=== PATIENT | male | born 1950 | race Caucasian/White ===

== ENCOUNTER 2017-04-15 09:05 | Inpatient (IN) | payer OTHER ==
[~2017-04-15] VITALS: Ht 195.6 cm; Wt 114.1 kg
[~2017-04-15 09:05] MED LIST: ASPCH81 PO; LANS15CA6 PO; LISI2.5T5 PO; LPT/40 PO; METO50TA7 PO; MULTTAB58 PO; NTRGSL/4 UT; PRD75 PO; PSYL55.43 PO; TRAM-10 PO
[2017-04-15] MEDS ORDERED: TRAMADOL HCL 50 MG TAB PO PRN (09:45)
--- NOTE | 2017-04-15 10:49 | History and Physical ---
"History & Physical Date of Service Apr 15, 2017. History & Physical 66 yo M that follow with Dr. Quinonez of our practice for PAF. S/P JASMEET guided cardioversion with recurrent episodes of afib. Presents for elective admission for sotalol loading. Currently without complaint. Understands need for admission and continuous cardiac monitoring for addition of antiarrhythmic. Denies cp, sob, palpitations, lightheadedness or dizziness. Compliant with outpatient medications. Has not missed any doses of pradaxa. ROS: Pertinent positives as per HPI, 5 system (cardiovascular, pulmonary, gastroenterologic, neurologic, endocrinologic) systems otherwise negative. Patient Active Problem List Diagnosis Code Cardiac dysrhythmia, unspecified I49.9 Esophageal reflux K21.9 THORACIC DISC DISPLACMNT M51.24 DISC DIS MNL-ESC-ICEA M50.90 Diaphragmatic hernia K44.9 LOC PRIM [id number] M17.10 ADVANCE DIRECTIVE INFORMATION Rotator cuff rupture M75.100 Generalized osteoarthritis of multiple sites M15.9 Impaired fasting glucose R73.01 Coronary atherosclerosis of eagle coronary artery I25.10 Dyslipidemia, goal LDL below 70 E78.5 S/P primary angioplasty with coronary stent Z95.5 Lumbar degenerative disc disease M51.36 Lumbar stenosis with neurogenic claudication M48.06 Facet arthritis of lumbosacral region (HCC) M46.97 Obesity, Class I, BMI 30.0-34.9 (see actual BMI) E66.9 Prediabetes R73.03 PVC (premature ventricular contraction) I49.3 Paroxysmal atrial fibrillation (HCC) I48.0 Social History Substance Use Topics Smoking status: Never Smoker Smokeless tobacco: Never Used Alcohol use No Review of patient's allergies indicates: Allergen Reactions Sulfa Antibiotics not sure if he reacted to this OUTPATIENT MEDICATIONS: metoprolol succinate XL (TOPROL XL) 50 MG TB24 Take 1 Tab by mouth daily. Patient taking differently: Take 75 mg by mouth daily. lisinopril (PRINIVIL) 2.5 MG Tablet Take 1 Tab by mouth daily. Cholecalciferol (VITAMIN D3) 2000 UNITS Capsule Take 1 Cap by mouth daily. atorvaSTATin (LIPITOR) 20 MG Tablet Take 1 Tab by mouth daily. Tadalafil (CIALIS) 10 MG Tablet TAKE DIRECTED NITROGLYCERIN 0.3 MG SL SUBL 1 every 5 min as needed with chest pain up to 3 doses in 15 minutes METAMUCIL CLEAR & NATURAL PO POWD daily as needed PREVACID 15 MG PO CPDR One capsule once a day at bedtime ECOTRIN LOW STRENGTH 81 MG OR TBEC one by mouth daily traMADol (ULTRAM) 50 MG Tablet Take 1 Tab by mouth every 4 hours as needed for Pain. dabigatran (PRADAXA) 150 MG Capsule Take 1 Cap by mouth 2 times a day. Lipid Panel Results: LIPID PANEL Aryan Dt/Tm Resulted Value Status HOURS FASTING (hours) 07/07/14 7:34A 07/07/14 12 Final TRIGLYCERIDES (mg/dL) 07/07/14 7:34A 07/07/14 93 Final CHOLESTEROL (mg/dL) 07/07/14 7:34A 07/07/14 98 Final HDL (mg/dL) 07/07/14 7:34A 07/07/14 36* Final CHOL/HDL RATIO ( ) 07/07/14 7:34A 07/07/14 2.7 Final LDL (CALCULATED) (mg/dL) 07/07/14 7:34A 07/07/14 43 Final TSH(uIU/mL) Aryan Dt/Tm Resulted Value Status 05/23/08 8:27A 05/23/08 1.12 FINAL 12/27/04 8:45A 12/28/04 1.98 FINAL 10/21/99 11:30A 10/21/99 0.74 FINAL CBC Results: CBC Aryan Dt/Tm Resulted Value Status WBC (K/uL) 07/28/12 9:30A 07/28/12 5.96 Final RBC (M/uL) 07/28/12 9:30A 07/28/12 4.74 Final HGB (g/dL) 07/28/12 9:30A 07/28/12 15.0 Final HCT (%) 07/28/12 9:30A 07/28/12 44.8 Final MCV (fL) 07/28/12 9:30A 07/28/12 94.5 Final MCH (pg) 07/28/12 9:30A 07/28/12 31.6 Final MCHC (g/dL) 07/28/12 9:30A 07/28/12 33.5 Final RDW (%) 07/28/12 9:30A 07/28/12 13.5 Final PLATELET COUNT (K/uL) 07/28/12 9:30A 07/28/12 270 Final MPV (fL) 07/28/12 9:30A 07/28/12 9.2 Final OBJECTIVE/PHYSICAL EXAMINATION: BP 108/70 | Pulse 78 | Resp 16 | Wt 250 lbs 12.8 oz (113.762kg) | BMI 29.74 kg/m | BSA 2.49 m General: NAD, AAO x3, well nourished. HEENT: Normocephalic. Atraumatic. Conjunctiva pink, no scleral icterus. No carotid bruits, the carotid upstrokes are brisk. No JVD. No HJR Heart: Regular normal S-1 and S-2 no S-3 or S-4 gallop. No murmurs or rubs appreciated. PMI is not displaced. No RV heave. Lungs : Clear bilateral without rales , rhonchi, or wheeze. Abdomen: Normal bowel sounds. Soft. Nontender. No masses or organomegaly. No abdominal bruits. Extremities: No clubbing, cyanosis, or edema. Pulses: radial=2/4, Dorsalis pedis =2/4, Neuro: No focal deficits. ASSESSMENT: 1. Paroxysmal atrial fibrillation -s/p JASMEET guided DCCV 08/2016. -recurrent episode x2 over the past 30 days. -failed outpatient treatment. -appropriately anticoagulated with Pradaxa 2. Chronic coronary disease status post drug eluting stent implantation to left anterior descending artery 2009. - OBRIEN reported without exertional chest pain 3. Dyslipidemia - controlled; tolerating 40 mg atorvastatin 4. Palpitations secondary to PVC's and PAF 5. Obesity - weight is stable, BMI now < 30 PLAN: Admission for sotalol load. Patient is not a candidate for flecainide due to history of coronary artery disease. Prefer to avoid amiodarone due to potential for long-term side effects. Recommend inpatient hospital admission for sotalol loading. Patient agreeable to admission 04/15/17. Long discussion with the patient and his regarding the natural history and pathophysiology of paroxysmal atrial fibrillation. Continue Pradaxa. Will perform daily EKG's to monitor QT interval. Continuous telemetry monitoring. Will titrate metoprolol down and likely off. Cont all other outpatient medications."
[2017-04-15 10:56] VITALS: BP 113/72; PULSE 60; TEMP 36.6; O2SAT 95; Ht 195.6 cm; Wt 114.1 kg
[2017-04-15] MEDS ORDERED: POLYETHYLENE (MIRALAX) 17 GM PACK PO PRN (11:00)
[2017-04-15] MEDS ORDERED: ALUMINUM/MAGNESIUM/SIMETH (MAALOX MAX) 30 ML UDC PO PRN (11:00)
[2017-04-15] MEDS ORDERED: ACETAMINOPHEN 325 MG TAB PO PRN (11:00)
[2017-04-15] MEDS ORDERED: ONDANSETRON INJ 2 MG/ML 2 ML VIAL IV PRN (11:00)
[2017-04-15] MEDS ORDERED: ZOLPIDEM TARTRATE 5 MG TAB PO PRN ×2 (11:00)
[2017-04-15] MEDS ORDERED: SOTALOL HCL 80 MG TAB PO ONE (11:00)
[2017-04-15] MEDS ORDERED: MAGNESIUM HYDROXIDE SUSP 30 ML UDC PO PRN (11:00)
[2017-04-15 11:20] LABS: MEAN CELL VOLUME 92.3 fL (80-100); MEAN CORPUSCULAR HEMOGLOBIN 29.6 pg (25-34); MEAN PLATELET VOLUME 9.3 fL (7.4-10.4); PLATELET COUNT 283 K/uL (130-400); RED BLOOD COUNT 4.66 M/uL (4.7-6.1); WHITE BLOOD COUNT 6.49 K/uL (4.8-10.8)
[2017-04-15 11:28] LABS: INR 1.1 (0.9-1.1); PROTHROMBIN TIME (PATIENT) 12.2 SECONDS (9.0-12.0)
[2017-04-15 11:42] LABS: CREATININE 0.86 mg/dl (0.60-1.40)
[2017-04-15 14:00] LABS: MEAN CORPUSCULAR HGB CONC 32.1 g/dl (32-36)
[2017-04-15 15:31] VITALS: BP 107/67; PULSE 53; TEMP 36.8; O2SAT 94
[2017-04-15 16:00] VITALS: O2SAT 95
[2017-04-15 20:00] VITALS: O2SAT 96
[2017-04-15 20:01] VITALS: BP 114/69; PULSE 54; TEMP 36.7; O2SAT 96
[2017-04-15] MEDS: DABIGATRAN ELEXILATE 75 MG CAP PO SCH (21:14)
[2017-04-15] MEDS: SOTALOL HCL 80 MG TAB PO SCH (21:15)
[2017-04-15 23:59] VITALS: BP 113/72; PULSE 54; TEMP 36.9; O2SAT 94
[2017-04-16] VITALS (8 sets, daily range): BP systolic 99–122; BP diastolic 58–71; PULSE 50–58; TEMP 36.4–37.1; O2SAT 93–96
[2017-04-16] MEDS: SOTALOL HCL 80 MG TAB PO SCH ×2 (08:10→21:42)
[2017-04-16] MEDS: DABIGATRAN ELEXILATE 75 MG CAP PO SCH ×2 (08:11→21:43)
[2017-04-16] MEDS: LISINOPRIL 2.5 MG TAB PO SCH (08:11)
[2017-04-16] MEDS ORDERED: NURSING VERBAL MED ORDER ONE (08:45)
[2017-04-16] MEDS ORDERED: LANSOPRAZOLE SOLUTAB 15 MG PO SCH ×2 (09:00→21:00)
[2017-04-16] MEDS ORDERED: ASPIRIN 81 MG ECTAB PO SCH ×2 (09:00→21:00)
[2017-04-16] MEDS ORDERED: METOPROLOL SUCC 25MG EXT REL TAB PO SCH (09:00)
[2017-04-16] MEDS ORDERED: ATORVASTATIN 20 MG TAB PO SCH ×2 (09:00→21:00)
--- NOTE | 2017-04-16 11:03 | Cardiology Follow-Up ---
Subjective Subjective Date of Service: Apr 16, 2017. Pt evaluation today including: conversation w/ patient, physical exam, chart review, lab review, review of studies, review of inpatient medication list Additional Details: Pt seen and examined, states that he feels fine, would like to go to the gym to work out. Denies cp, sob, palpitations, lightheadedness or dizziness. Tele reviewed: sinus rhythm without arrhythmia. EKG sinus rhythm with QTc of 433 ms Problem List Medical Problems: (1) Exertional dyspnea Status: Acute (2) New onset atrial fibrillation Status: Acute (3) Weakness Status: Acute Review of Systems Respiratory: No see HPI, No cough, No sputum, No wheezing, No shortness of breath, No dyspnea on exertion, No dyspnea at rest, No hemoptysis, No problem reported Cardiac: No see HPI, No chest pain, No orthopnea, No PND, No edema, No claudication, No palpitations, No problem reported Objective Vital Signs Last Vital Signs Documentation Date Time Temp Pulse Resp B/P (MAP) Pulse Ox O2 Delivery O2 Flow Rate FiO2 04/16/17 08:02 36.6 58 18 99/61 (74) 96 04/16/17 08:00 Room Air Physical Exam: General Appearance: WD/WN, no apparent distress Eyes: bilateral eyes normal inspection, bilateral eyes PERRL, bilateral eyes EOMI ENT: normal ENT inspection, hearing grossly normal, pharynx normal Neck: supple, no adenopathy, thyroid normal, no JVD, no carotid bruits, trachea midline Respiratory/Chest: chest non-tender, lungs clear, normal breath sounds, no respiratory distress, no accessory muscle use Cardiovascular: regular rate, rhythm, no edema, no JVD, no murmur, + gallop/S4 Abdomen: normal bowel sounds, non tender, soft Extremities: normal inspection, no pedal edema, no calf tenderness 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 paroxysmal atrial fibrillation here for sotalol load tolerating well QTc stable 413 to 433 ms, well within normal limits will cont toprol stopped cont pradaxa monitor for 6 doses daily ekg cont to monitor on tele
[2017-04-17] VITALS (7 sets, daily range): BP systolic 101–116; BP diastolic 64–73; PULSE 54–97; TEMP 36.6–37; O2SAT 94–97
[2017-04-17] MEDS: LISINOPRIL 2.5 MG TAB PO SCH (08:20)
[2017-04-17] MEDS: SOTALOL HCL 80 MG TAB PO SCH (08:20)
[2017-04-17] MEDS: DABIGATRAN ELEXILATE 75 MG CAP PO SCH (08:20)
--- NOTE | 2017-04-17 10:19 | Cardiology Follow-Up ---
Subjective Subjective Date of Service: Apr 17, 2017. Pt evaluation today including: conversation w/ patient, physical exam, chart review, lab review, review of studies, review of inpatient medication list Additional Details: Pt seen and examined, states that he feels fine. Denies cp, sob, palpitations, lightheadedness or dizziness. Tele reviewed: sinus rhythm without arrhythmia or significant ectopy. EKG: sinus rhythm QTc 437ms Problem List Medical Problems: (1) Exertional dyspnea Status: Acute (2) New onset atrial fibrillation Status: Acute (3) Weakness Status: Acute Review of Systems Respiratory: No see HPI, No cough, No sputum, No wheezing, No shortness of breath, No dyspnea on exertion, No dyspnea at rest, No hemoptysis, No problem reported Cardiac: No see HPI, No chest pain, No orthopnea, No PND, No edema, No claudication, No palpitations, No problem reported Objective Vital Signs Last Vital Signs Documentation Date Time Temp Pulse Resp B/P (MAP) Pulse Ox O2 Delivery O2 Flow Rate FiO2 04/17/17 08:32 36.8 97 16 101/65 (77) 97 Room Air Physical Exam: General Appearance: WD/WN, no apparent distress Eyes: bilateral eyes normal inspection, bilateral eyes PERRL, bilateral eyes EOMI ENT: normal ENT inspection, hearing grossly normal, pharynx normal Neck: supple, no adenopathy, thyroid normal, no JVD, no carotid bruits, trachea midline Respiratory/Chest: chest non-tender, lungs clear, normal breath sounds, no respiratory distress, no accessory muscle use Cardiovascular: regular rate, rhythm, no edema, no JVD, no murmur, + gallop/S4 Abdomen: normal bowel sounds, non tender, soft Extremities: normal inspection, no pedal edema, no calf tenderness 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 paroxysmal atrial fibrillation here for sotalol load tolerating well QTc stable 413 to 433 to 437 ms, well within normal limits will cont toprol stopped cont pradaxa since QTc has been stable: will give evening dose early, check ekg and likely d/c to home this afternoon script called into [facility] pharmacy as per patient preference
[2017-04-17] MEDS ORDERED: BTP80 PO (10:21)
--- NOTE | 2017-04-17 10:23 | Discharge Instructions ---
Discharge Instructions Date of Service Apr 17, 2017. Admission Reason for Admission: Atrial Fibrillation Discharge Discharge Diagnosis / Problem: Sotalol initiation for paroxysmal atrial fibrillation Discharge Goals Goal(s): Improve disease control Activity Recommendations Activity Limitations: resume your previous activity Lifting Limitations: none Exercise/Sports Limitations: as tolerated May Resume Sexual Activity: when tolerated Shower/Bathe: no limitations Driving or Machine Use: no limitations . Instructions / Follow-Up Instructions / Follow-Up Scheduled to see Dr. Quinonez on 05/18/17. Current Hospital Diet Patient's current hospital diet: AHA Diet (Heart Healthy) Discharge Diet Recommended Diet: AHA Diet (Heart Healthy) Pending Studies Studies pending at discharge: no Medical Emergencies . Who to Call and When: Medical Emergencies: If at any time you feel your situation is an emergency, please call 911 immediately. . Non-Emergent Contact Non-Emergency issues call your: Primary Care Provider . . "Provider Documentation" section prepared by José Miguel Santiago. . VTE Core Measure Inpt VTE Proph given/why not?: Other Anticoagulation
[2017-04-17] MEDS: SOTALOL HCL 80 MG TAB PO ONE ×2 (14:43→15:05)
== END 2017-04-17 16:18 | disposition home or self-care (01) | DRG 310 ==
LOC: C.2T 10:16
PROVIDERS: ADMIT Internal Medicine Cardiovascular Disease; ATTEND Internal Medicine Cardiovascular Disease
DX: I48.0 Paroxysmal atrial fibrillation (principal); I25.10 Atherosclerotic heart disease of native coronary artery without angina pectoris; Z95.5 Presence of coronary angioplasty implant and graft; E78.5 Hyperlipidemia, unspecified; E66.9 Obesity, unspecified; Z68.29 Body mass index [BMI] 29.0-29.9, adult; I49.3 Ventricular premature depolarization; Z79.899 Other long term (current) drug therapy

== ENCOUNTER 2021-02-17 14:05 | Inpatient (IN) ==
--- NOTE | 2021-02-17 14:17 | Emergency Department Note ---
Impression & Plan Back pain, History of fusion of lumbar spine ED Provider Note NAME: OLIVA STARR AGE: 70 SEX: M : 1950 ARRIVES VIA: Ambulance INFORMANT: Patient, ED PROVIDER(S): Lewis Conway MD Chief Complaint: Back pain HPI: Patient does present with concern for midline lower back pain. Patient states that this is been ongoing for several months but believes it is been exacerbated over the last 2 weeks. The patient describes it as sharp with occasional radiation to the right thigh and hip area. Patient states he has been playing golf in the colder weather he thinks also may have exacerbated his symptoms. Patient states that this morning he was unable to get up and walk and thus called the ambulance. The patient did receive fentanyl in route with mild improvement in symptoms. Patient denies any bowel or bladder incontinence or true weakness. The patient denies any numbness or tingling. The patient denies any saddle anesthesia. Patient denies fevers or chills. The patient does have a remote history of a spinal fusion completed in [address] Carrillo. The patient did have an outpatient MRI completed at [facility] on Thursday and also believes that this may have contributed to his discomfort. ROS: See HPI for pertinent positives and negatives. A total of 10 systems were reviewed and otherwise negative. Past medical history: See below Surgical history: See below Social history: See below Physical Exam: GENERAL: Mildly uncomfortable in appearance, wearing glasses and a mask, lying on left side. EYE EXAM: Normal conjunctiva. PERRL, no anisocoria and EOM's grossly intact w/o pain. NECK: Supple, no nuchal rigidity, no adenopathy, non-tender. No signs of meningismus. LUNGS: Clear to auscultation. Normal chest wall mechanics. HEART: NSR, no MRG. ABDOMEN: Abdomen soft, non-tender, normo-active bowel sounds, no masses, no rebound or guarding. BACK: Well-healed midline lower lumbar incisional scar, mild pain in the midline lower lumbar region without overlying skin changes. SKIN: No rashes and no bruising. UPPER EXTREMITIES: Upper extremities are grossly normal. LOWER EXTREMITIES: Grossly normal, no edema. No saddle anesthesia, decreased range of motion secondary to pain. NEURO EXAM: A&O x3, cranial nerves II-XII grossly intact, normal speech, moves all 4 extremities. No saddle anesthesia Differential diagnoses: Musculoskeletal, disc herniation, fracture, metastatic disease, cord compression, discitis, sciatica, cauda equina, infection, aortic disease, renal colic, gastrointestinal, as well as other pathologies. Course: Patient was seen and evaluated the bedside. Full history physical exam was performed. EKG: None Imaging Studies: None Cardiac monitoring: An order was placed for continuous cardiac monitoring. The monitor shows a rate of 78 with sinus rhythm. MDM: Patient was seen due to concern for back pain. Blood work is obtained. I did try and attempt to obtain his outpatient MRI but this was unable to be done given that it was a Thursday. I did Contact the on-call spinal surgeon after the patient did require multiple medications for his back pain. Do not believe the patient requires repeat imaging given that he just had it done within the last 48 hours and has no signs of current cauda equina. After further discussion with the patient the patient's is unable to get up and walk and be comfortable at home and does not believe that his will be able to care for him. Covid swab ordered. I did speak to the on-call hospitalist Dr. Jaime and the patient was admitted to the medicine service. Past Med/Surg History Medical History Atrial fibrillation, currently in sinus rhythm AFIB DX 4-5 YR AGO - HX CARDIOVERSION 2015 CAD (coronary artery disease) Cubital tunnel syndrome on right Diverticulosis GERD (gastroesophageal reflux disease) HX Heart disease History of anesthesia reaction ONLY ONE TIME WITH GENERAL ANESTHESIA HAD TROUBLE CATCHING BREATH - PT NOT SURE WHAT SURGERY THAT WAS WITH Pre-diabetes Right carpal tunnel syndrome Surgical History H/O colonoscopy H/O knee surgery RIGHT History of bilateral knee replacement History of esophagogastroduodenoscopy (EGD) History of laminectomy CERVICAL 1991 - DENIES LIMITED ROM - OCC NECK CRACKS History of lumbar fusion History of percutaneous left heart catheterization (LHC) HX HEART CATH FOR SYMPTOMS & STENT X 1 2009 - [facility] History of repair of left rotator cuff History of repair of right rotator cuff S/P cholecystectomy HX OF Stented coronary artery HX STENT X 1 - 2009 [facility] Family History Other Family history of colon cancer in father Family history of colon cancer in mother Social History Smoking Status: Never smoker Hx Alcohol Use: Yes Alcohol type: beer Hx Substance Use: No Preferred Language: Tajik Communication Ability: Effective Visual Impairment: Limited Hearing Ability: Hard of Hearing 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 HIVES Home Meds Home Medications Medication Instructions Recorded Confirmed acetaminophen 500 mg tablet 1,000 mg PO QID PRN tab 05/31/19 02/17/21 aspirin 81 mg tablet,delayed 81 mg PO DAILY 05/31/19 02/17/21 release dabigatran etexilate 150 mg capsule 150 mg PO BID 05/31/19 02/17/21 nitroglycerin 0.4 mg sublingual 0.4 mg SL Q5M PRN 05/31/19 02/17/21 tablet sotalol 80 mg tablet 80 mg PO BID 05/31/19 02/17/21 cholecalciferol (vitamin D3) 50 mcg PO DAILY 08/08/20 02/17/21 [Vitamin D3] metformin 500 mg PO BID 08/08/20 02/17/21 atorvastatin 40 mg PO QPM 02/17/21 02/17/21 baclofen 10 mg PO BID PRN 02/17/21 02/17/21 cyanocobalamin (vitamin B-12) 1,000 mcg PO Q OTHER DAY 02/17/21 02/17/21 [Vitamin B-12] lansoprazole [Prevacid] 15 mg PO Q OTHER DAY 02/17/21 02/17/21 Previous Rx's Medication Instructions Recorded tramadol 50 - 100 mg PO Q6H PRN #24 tab 08/22/20 Results & Data (ED) Vital Signs Vital Signs - 24 hr 02/17/21 16:09 02/17/21 16:36 02/17/21 17:55 Temperature Temperature Source Pulse Rate [Right Finger] 80 76 Pulse Rhythm Regular Pulse Rhythm [Right Finger] Regular Respiratory Rate 18 18 Respiratory Effort / Characteristics Respiratory Depth Respiratory Pattern Blood Pressure [Left Arm] 123/69 120/60 Blood Pressure [Right Arm] Blood Pressure Mean [Left Arm] 87 80 Blood Pressure Mean [Right Arm] Blood Pressure Position [Left Arm] Blood Pressure Position [Right Arm] Pulse Oximetry 99 99 Oxygen Delivery Method Room Air Room Air 02/17/21 18:38 02/17/21 20:20 02/17/21 22:03 Temperature 36.5 C 36.9 C Temperature Source Oral Oral Pulse Rate [Right Finger] 81 90 77 Pulse Rhythm Pulse Rhythm [Right Finger] Respiratory Rate 14 16 Respiratory Effort / Characteristics Non-Labored Non-Labored Spontaneous Respiratory Depth Normal Normal Respiratory Pattern Regular Regular Blood Pressure [Left Arm] 132/80 123/72 108/66 Blood Pressure [Right Arm] 108/66 Blood Pressure Mean [Left Arm] 97 89 80 Blood Pressure Mean [Right Arm] 80 Blood Pressure Position [Left Arm] Lying Semi-fowlers Lying Blood Pressure Position [Right Arm] Lying Pulse Oximetry 92 90 Oxygen Delivery Method Room Air Room Air Room Air 02/18/21 07:23 Temperature 37.0 C Temperature Source Oral Pulse Rate [Right Finger] 78 Pulse Rhythm Pulse Rhythm [Right Finger] Respiratory Rate 16 Respiratory Effort / Characteristics Respiratory Depth Normal Respiratory Pattern Blood Pressure [Left Arm] Blood Pressure [Right Arm] 122/67 Blood Pressure Mean [Left Arm] Blood Pressure Mean [Right Arm] 85 Blood Pressure Position [Left Arm] Blood Pressure Position [Right Arm] Lying Pulse Oximetry 92 Oxygen Delivery Method Room Air Home Medications Current Medication List: was personally reviewed by me Laboratory Data Attestation: I reviewed the patient's lab results. Result diagrams: 02/17/21 14:18 02/17/21 14:18 Lab Results 02/17/21 02/17/21 02/17/21 Range/Units 14:18 14:18 16:52 WBC 14.24 H (4.8-10.8) K/uL RBC 4.58 L (4.7-6.1) M/uL Hgb 13.4 L (14.0-18.0) g/dL Hct 41.4 L (42-52) % MCV 90.4 (80-100) fL MCH 29.3 (25-34) pg MCHC 32.4 (32-36) g/dL RDW Std Deviation 45.6 (36.4-46.3) fL RDW Coeff of Durga 13.7 (11.5-14.5) % Plt Count 612 H (130-400) K/uL MPV 8.7 (7.4-10.4) fL Immature Gran % (Auto) 0.5 % Neut % (Auto) 84.8 % Lymph % (Auto) 4.8 % Kendall % (Auto) 9.6 % Eos % (Auto) 0.2 % Baso % (Auto) 0.1 % Neut # (Auto) 12.07 H (1.4-6.5) K/uL Lymph # (Auto) 0.69 L (1.2-3.4) K/uL Kendall # (Auto) 1.37 H (0.11-0.59) K/uL Eos # (Auto) 0.03 (0-0.5) K/uL Baso # (Auto) 0.01 (0-0.2) K/uL Immature Gran # (Auto) 0.07 H (0.00-0.02) K/uL Sodium 139 (136-145) mmol/L Potassium 4.3 (3.5-5.1) mmol/L Chloride 103 (98-107) mmol/L Carbon Dioxide 29 (21-32) mmol/L Anion Gap 7.0 (3-11) BUN 16 (7-18) mg/dl Creatinine 0.57 L (0.6-1.4) mg/dl Est Cr Clr Drug Dosing 152.0 ml/min Est GFR ( Amer) 120.6 Est GFR (Non-Af Amer) 104.0 BUN/Creatinine Ratio 27.8 H (10-20) Glucose 123 H (70-99) mg/dl POC Glucose (70-99) mg/dl Calcium 9.2 (8.5-10.1) mg/dl Specimen Hemolysis COVID-19 Eval Order CovFluRsv at [facility] SARS-CoV-2 (PCR) (Negative) Influenza Type A (PCR) (Neg) Influenza Type B (PCR) (Neg) RSV (RT-PCR) (Neg) 05/12/0902/17/21 02/18/21 Range/Units 16:52 20:53 09:18 WBC (4.8-10.8) K/uL RBC (4.7-6.1) M/uL Hgb (14.0-18.0) g/dL Hct (42-52) % MCV (80-100) fL MCH (25-34) pg MCHC (32-36) g/dL RDW Std Deviation (36.4-46.3) fL RDW Coeff of Druga (11.5-14.5) % Plt Count (130-400) K/uL MPV (7.4-10.4) fL Immature Gran % (Auto) % Neut % (Auto) % Lymph % (Auto) % Kendall % (Auto) % Eos % (Auto) % Baso % (Auto) % Neut # (Auto) (1.4-6.5) K/uL Lymph # (Auto) (1.2-3.4) K/uL Kendall # (Auto) (0.11-0.59) K/uL Eos # (Auto) (0-0.5) K/uL Baso # (Auto) (0-0.2) K/uL Immature Gran # (Auto) (0.00-0.02) K/uL Sodium (136-145) mmol/L Potassium (3.5-5.1) mmol/L Chloride (98-107) mmol/L Carbon Dioxide (21-32) mmol/L Anion Gap (3-11) BUN (7-18) mg/dl Creatinine (0.6-1.4) mg/dl Est Cr Clr Drug Dosing ml/min Est GFR ( Amer) Est GFR (Non-Af Amer) BUN/Creatinine Ratio (10-20) Glucose (70-99) mg/dl POC Glucose 172 H 113 H (70-99) mg/dl Calcium (8.5-10.1) mg/dl Specimen Hemolysis COVID-19 Eval Order SARS-CoV-2 (PCR) NEGATIVE (Negative) Influenza Type A (PCR) Negative (Neg) Influenza Type B (PCR) Negative (Neg) RSV (RT-PCR) Negative (Neg) Administered Medications Aspirin (Aspirin 81 Mg Ectab) 81 mg PO DAILY [facility] Stop: 03/20/21 08:59 Last Admin: 02/18/21 08:32 Dose: 81 mg Documented by: [id number] Atorvastatin Calcium (Atorvastatin 40 Mg Tab) 40 mg PO QPM [facility] Stop: 03/19/21 20:59 Last Admin: 02/17/21 20:31 Dose: 40 mg Documented by: [id number] Baclofen (Baclofen 10 Mg Tab) 10 mg PO BID PRN PRN Reason: MUSCLE SPASMS Stop: 03/19/21 18:32 Last Admin: 02/18/21 03:43 Dose: 10 mg Documented by: [id number] Cyanocobalamin (Cyanocobalamin 500 Mcg Tablet (Vitamin B-12)) 1,000 mcg PO Q2D@0900 [facility] Stop: 03/20/21 08:59 Last Admin: 02/18/21 08:32 Dose: 1,000 mcg Documented by: [id number] Dexamethasone 4 mg/ Syringe 1 mls @ 1 mls/min IV Q12H [facility] Stop: 03/19/21 21:59 Last Admin: 02/18/21 09:01 Dose: 1 mls/min Documented by: [id number] Admin: 02/17/21 21:18 Dose: 1 mls/min Documented by: [id number] Insulin Aspart (Insulin Aspart 100 Units/Ml 3 Ml Pen) 0 units SC ACHS [facility] Stop: 03/19/21 20:59 Last Admin: 02/18/21 13:23 Dose: 1 units Documented by: [id number] Cosigned by: [id number] Admin: 02/18/21 09:21 Dose: Not Given Documented by: [id number] Admin: 02/17/21 21:19 Dose: 2 units Documented by: [id number] Cosigned by: [id number] Lidocaine (Lidocaine 5% 1 Patch) 1 patch TD QAM [facility] Stop: 03/20/21 08:59 Last Admin: 02/18/21 08:19 Dose: 1 patch Documented by: [id number] Miscellaneous (Remove Lidoderm Patch) 1 ea N/A DAILY@2100 [facility] Stop: 03/19/21 20:59 Last Admin: 02/17/21 20:29 Dose: 1 ea Documented by: [id number] Morphine Sulfate (Morphine Sulfate 4 Mg/Ml 1 Ml Carp\Vial) 6 mg IV Q3H PRN PRN Reason: Pain Stop: 03/04/21 07:49 Last Admin: 02/18/21 11:28 Dose: 6 mg Documented by: [id number] Sotalol HCl (Sotalol Hcl 80 Mg Tab) 80 mg PO BID [facility] Stop: 03/19/21 20:59 Last Admin: 02/18/21 08:32 Dose: 80 mg Documented by: [id number] Admin: 02/17/21 20:31 Dose: 80 mg Documented by: [id number] Vitamin D (Cholecalciferol 1,000 Units 25 Mcg Tab) 2,000 units PO DAILY [facility] Stop: 03/20/21 08:59 Last Admin: 02/18/21 08:32 Dose: 2,000 units Documented by: [id number] Discontinued Medications Acetaminophen (Acetaminophen 500 Mg Tab) 1,000 mg PO NOW STA Stop: 02/17/21 14:35 Last Admin: 02/17/21 14:56 Dose: 1,000 mg Documented by: [id number] Dabigatran (Dabigatran Etexilate 75 Mg Cap) 150 mg PO BID [facility] Stop: 03/19/21 20:59 Last Admin: 02/18/21 08:32 Dose: 150 mg Documented by: [id number] Admin: 02/17/21 20:33 Dose: 150 mg Documented by: [id number] Fentanyl Citrate (Fentanyl Citrate 100 Mcg/2 Ml Vial) 50 mcg IV NOW STA Stop: 02/17/21 14:35 Last Admin: 02/17/21 14:57 Dose: 50 mcg Documented by: [id number] Hydromorphone HCl (Hydromorphone Inj 1 Mg/Ml Syringe) 0.75 mg IV NOW STA Stop: 02/17/21 16:29 Last Admin: 02/17/21 16:36 Dose: 0.75 mg Documented by: [id number] Hydromorphone HCl (Hydromorphone Inj 0.5 Mg/0.5 Ml Syr) 0.5 mg IV Q3H PRN PRN Reason: Pain Stop: 03/03/21 17:41 Last Admin: 02/18/21 02:36 Dose: 0.5 mg Documented by: [id number] Admin: 02/17/21 20:31 Dose: 0.5 mg Documented by: [id number] Hydromorphone HCl (Hydromorphone Inj 0.5 Mg/0.5 Ml Syr) 0.5 mg IV NOW STA Stop: 02/18/21 05:03 Last Admin: 02/18/21 05:27 Dose: 0.5 mg Documented by: [id number] Lidocaine (Lidocaine 5% 1 Patch) 1 patch TD NOW STA Stop: 02/17/21 14:37 Last Admin: 02/17/21 14:56 Dose: 1 patch Documented by: [id number] Methylprednisolone (Methylprednisolone 40 Mg/Ml Vial) 60 mg IV NOW STA Stop: 02/17/21 14:35 Last Admin: 02/17/21 14:56 Dose: 60 mg Documented by: [id number] Morphine Sulfate (Morphine Sulfate 4 Mg/Ml 1 Ml Carp\Vial) 4 mg IV Q3H PRN PRN Reason: Pain Stop: 03/04/21 07:49 Last Admin: 02/18/21 08:19 Dose: 4 mg Documented by: [id number] Discharge Plan Visit Data Chief Complaint: Back Injury/Pain Stated Complaint: BACK PAIN ED Provider: Lewis Conway Discharge Problem: Back pain, History of fusion of lumbar spine Patient Disposition: Admitted As Inpatient Discharge Instructions Interventions: ED Discharge Assessment Last Done: 02/17/21 18:13 Discharge Problem: Back pain Qualifiers: Back pain location: low back pain Chronicity: acute Back pain laterality: midline Sciatica presence: without sciatica Qualified Code(s): M54.5 - Low back pain
[2021-02-17] MEDS ORDERED: fentaNYL citrate 100 MCG/2 ML VIAL IV STA (14:34)
[2021-02-17] MEDS ORDERED: ACETAMINOPHEN 500 MG TAB PO STA (14:34)
[2021-02-17] MEDS ORDERED: LIDOCAINE 5% 1 PATCH TD STA (14:36)
[2021-02-17 14:45] LABS: Basophils # (auto) 0.01 K/uL (0-0.2); Basophils % (auto) 0.1 %; Eosinophils # (auto) 0.03 K/uL (0-0.5); Eosinophils % (auto) 0.2 %; Hematocrit (blood only) 41.4 % (42-52); Hemoglobin 13.4 g/dL (14.0-18.0); Immature Granulocytes # (auto) 0.07 K/uL (0.00-0.02); Immature Granulocytes % (auto) 0.5 %; Lymphocytes # (auto) 0.69 K/uL (1.2-3.4); Lymphocytes % (auto) 4.8 %; Mean Corpuscular Hemoglobin 29.3 pg (25-34); Mean Corpuscular Hgb Conc 32.4 g/dL (32-36); Mean Corpuscular Volume 90.4 fL (80-100); Mean Platelet Volume 8.7 fL (7.4-10.4); Monocytes # (auto) 1.37 K/uL (0.11-0.59); Monocytes % (auto) 9.6 %; Neutrophils # (auto) 12.07 K/uL (1.4-6.5); Neutrophils % (auto) 84.8 %; Platelet Count 612 K/uL (130-400); RDW Coefficient of Variation 13.7 % (11.5-14.5); RDW Standard Deviation 45.6 fL (36.4-46.3); Red Blood Count 4.58 M/uL (4.7-6.1); White Blood Count 14.24 K/uL (4.8-10.8)
[2021-02-17 15:00] LABS: BUN Creatinine Ratio 27.8 (10-20); Calcium 9.2 mg/dl (8.5-10.1); Est GFR (African American) 120.6; Potassium 4.3 mmol/L (3.5-5.1)
[2021-02-17] MEDS ORDERED: HYDROmorphone INJ 1 MG/ML SYRINGE IV STA (16:28)
[2021-02-17 17:41] LABS: Influenza A virus by PCR Negative (Neg); Influenza B virus by PCR Negative (Neg); RSV by PCR Negative (Neg); SARS CoV2 RNA(COVID-19) InHosp NEGATIVE (Negative)
--- NOTE | 2021-02-17 17:53 | History & Physical Report ---
Date of Service February 17, 2021 Assessment & Plan (1) Intractable back pain: History of lumbar fusion and decompression in 2012 Increasing back pain at the surgical site for the last 2 to 3 weeks which is worse over the last week MRI was done on Thursday last results are pending Presented to ER with intractable pain localized with minimal radiation We will give adequate pain medications and steroid for now Ortho will be consulted Further management as per orthopedic surgery (2) Radiculopathy: Mild radiculopathy involving the right thigh and buttock area No problem with urine and bowel habit (3) Atrial fibrillation, currently in sinus rhythm: Rate is controlled and seems to be in sinus rhythm We will get EKG Continue sotalol and other medication (4) HTN (hypertension): Controlled now (5) Chronic anticoagulation: We will continue Pradaxa and aspirin for now CODE STATUS Full History of Present Illness Chief Complaint: Intractable back pain for the last 2 days Primary Care Provider: Nga Miranda DO He is a 70-year-old male with significant past medical history of hypertension, atrial fibrillation on sotalol and Pradaxa with a history of lumbar spinal fusion and decompression in 2012 apparently has been complaining of localized pain at the operation site for the last 2 to 3 weeks. His pain is has been worse for the last 1 week or so and he underwent an MRI of the lumbar spine on Thursday last since then the pain has been increasing to such extent that he could hardly move around. His pain is localized and it radiates to down the right thigh and right buttock area and does not have any numbness and or tingling involving any of the lower extremities and does not have any problem with urine and her bowel habit. His pain was so bad this morning that he came to the emergency room for further evaluation. The results of MRI are not available as of yet and Dr. Carrillo was contacted who will see the patient tomorrow. Denies any other symptoms specially no chest pain or palpitation, no abdominal pain nausea or vomiting, and no problem with urine and bowel habit and denies any significant weakness involving any of the extremities. Allergies Allergy/AdvReac Type Severity Reaction Status Date / Time Sulfa (Sulfonamide Allergy Unknown PT NOT Verified 02/17/21 15:09 Antibiotics) SURE IF ALLERGIC TOO, ? HIVES Home Medications Medication Instructions Recorded Confirmed Type acetaminophen 500 mg tablet 1,000 mg PO QID PRN tab 05/31/19 02/17/21 History aspirin 81 mg tablet,delayed 81 mg PO DAILY 05/31/19 02/17/21 History release dabigatran etexilate 150 mg capsule 150 mg PO BID 05/31/19 02/17/21 History nitroglycerin 0.4 mg sublingual 0.4 mg SL Q5M PRN 05/31/19 02/17/21 History tablet sotalol 80 mg tablet 80 mg PO BID 05/31/19 02/17/21 History cholecalciferol (vitamin D3) 50 mcg PO DAILY 08/08/20 02/17/21 History [Vitamin D3] metformin 500 mg PO BID 08/08/20 02/17/21 History tramadol 50 - 100 mg PO Q6H PRN #24 tab 08/22/20 02/17/21 Rx atorvastatin 40 mg PO QPM 02/17/21 02/17/21 History baclofen 10 mg PO BID PRN 02/17/21 02/17/21 History cyanocobalamin (vitamin B-12) 1,000 mcg PO Q OTHER DAY 02/17/21 02/17/21 History [Vitamin B-12] lansoprazole [Prevacid] 15 mg PO Q OTHER DAY 02/17/21 02/17/21 History Past Med/Surg History Medical History (Updated 02/17/21 @ 17:51 by Alissa Jaime MD) Atrial fibrillation, currently in sinus rhythm AFIB DX 4-5 YR AGO - HX CARDIOVERSION 2015 CAD (coronary artery disease) Cubital tunnel syndrome on right Diverticulosis GERD (gastroesophageal reflux disease) HX Heart disease History of anesthesia reaction ONLY ONE TIME WITH GENERAL ANESTHESIA HAD TROUBLE CATCHING BREATH - PT NOT SURE WHAT SURGERY THAT WAS WITH Pre-diabetes Right carpal tunnel syndrome Surgical History H/O colonoscopy H/O knee surgery RIGHT History of bilateral knee replacement History of esophagogastroduodenoscopy (EGD) History of laminectomy CERVICAL 1991 - DENIES LIMITED ROM - OCC NECK CRACKS History of lumbar fusion History of percutaneous left heart catheterization (LHC) HX HEART CATH FOR SYMPTOMS & STENT X 1 2009 [facility] History of repair of left rotator cuff History of repair of right rotator cuff S/P cholecystectomy HX OF Stented coronary artery HX STENT X 1 - 2009 [facility] Family History Other Family history of colon cancer in father Family history of colon cancer in mother Social History Smoking Status: Never smoker Hx Alcohol Use: Yes Alcohol type: beer Hx Substance Use: No Preferred Language: Liberian Communication Ability: Effective Visual Impairment: Limited Hearing Ability: Hard of Hearing 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 Constitutional: well developed, well nourished and + ill appearing Eyes: PERRL, conjunctivae normal, anicteric sclerae ENMT: external ear and nose normal, oropharynx normal Neck: trachea midline, no thyromegaly Respiratory: no respiratory distress Auscultation: lungs clear to auscultation bilaterally Cardiovascular: Rate/Rhythm: regular rate and regular rhythm Heart Sounds: no murmur Extremities: no edema Gastrointestinal (Abdomen): Inspection/Auscultation: normal bowel sounds; abdomen not distended Percussion/Palpation: abdomen soft; abdomen nontender Musculoskeletal: Localized tenderness at the lower back. Straight leg raising was minimally painful but pain was worse when he was trying to put the legs down after elevation Neurologic: Alert, awake and oriented x3. No focal sensory and motor deficit appreciated Psychiatric: A+Ox3, euthymic affect Results & Data Results & Data ([facility]) Vital Signs (Past 12 Hours) Vital Signs Temp Pulse Resp BP Pulse Ox 02/17/21 16:36 80 18 123/69 99 02/17/21 14:55 77 18 123/69 99 02/17/21 14:07 37.3 C Laboratory Results Short CBC 02/17/21 Range/Units 14:18 WBC 14.24 H (4.8-10.8) K/uL Hgb 13.4 L (14.0-18.0) g/dL Hct 41.4 L (42-52) % Plt Count 612 H (130-400) K/uL BMP 02/17/21 14:18 Sodium 139 Potassium 4.3 Chloride 103 Carbon Dioxide 29 BUN 16 Creatinine 0.57 L Glucose 123 H Calcium 9.2 Medications Administered Current Inpatient Medications Hydromorphone HCl (Hydromorphone Inj 0.5 Mg/0.5 Ml Syr) 0.5 mg IV Q3H PRN PRN Reason: Pain Stop: 03/03/21 17:41 Dexamethasone 4 mg/ Syringe 1 mls @ 1 mls/min IV Q12H [facility] Stop: 03/19/21 17:44 Miscellaneous (Remove Lidoderm Patch) 1 ea N/A DAILY@2100 [facility] Stop: 03/19/21 20:59 Code Status & VTE Plan VTE Prophylaxis Plan VTE Prophylaxis will be ordered: Yes
[2021-02-17] MEDS ORDERED: NITROGLYCERIN SL 0.4 MG/TAB TAB SL PRN (18:33)
[2021-02-17] MEDS ORDERED: BACLOFEN 10 MG TAB PO PRN (18:33)
[2021-02-17] MEDS ORDERED: ACETAMINOPHEN 500 MG TAB PO PRN (18:39)
--- NOTE | 2021-02-17 19:04 | Orthopedic Consultation ---
Date of Consultation February 17, 2021 Assessment & Plan (1) Lumbar disc herniation with radiculopathy: Assessment herniated pulposis with spinal stenosis L2-3 L3-4. Plan I have reviewed his MRI from Thursday of the lumbar spine. Demonstrates a massive disc herniation L3-L4 with cephalad migration on the right. There is severe neuroforaminal stenosis at the L2-L3 L3-L4 level on the right. This point he has marked decline in status severe neural compression and is candidate for surgical invention. Would require a lumbar decompression and fusion L2-3 L3-4 with removal of instrumentation at L4-5 L5-S1. Risk benefits pros cons and alternatives were outlined with in detail with the patient. We will have him evaluated by medicine and anesthesiology and hopefully perform surgery Thursday or Thursday of this week. Present on Admission?: Yes History of Present Illness Reason for Consultation: Right leg pain Attending Physician: Alissa Jaime MD History of Present Illness This is a 70-year-old male well-known to me the presents with marked decline in status over the past 3 weeks. He describes pain in the right buttock and into the anterior thigh. He is unable to ambulate. He states there was no specific trauma fall or event. He underwent an MRI scan Thursday and since that time is declined rapidly. The left lower extremity is asymptomatic. He had to be brought to the emergency room by way of ambulance as he was unable to ambulate or stand. He denies any loss of bowel bladder control. Allergies Allergy/AdvReac Type Severity Reaction Status Date / Time Sulfa (Sulfonamide Allergy Unknown PT NOT Verified 02/17/21 15:09 Antibiotics) SURE IF ALLERGIC TOO, ? HIVES Home Medications Medication Instructions Recorded Confirmed Type acetaminophen 500 mg tablet 1,000 mg PO QID PRN tab 05/31/19 02/17/21 History aspirin 81 mg tablet,delayed 81 mg PO DAILY 05/31/19 02/17/21 History release dabigatran etexilate 150 mg capsule 150 mg PO BID 05/31/19 02/17/21 History nitroglycerin 0.4 mg sublingual 0.4 mg SL Q5M PRN 05/31/19 02/17/21 History tablet sotalol 80 mg tablet 80 mg PO BID 05/31/19 02/17/21 History cholecalciferol (vitamin D3) 50 mcg PO DAILY 08/08/20 02/17/21 History [Vitamin D3] metformin 500 mg PO BID 08/08/20 02/17/21 History tramadol 50 - 100 mg PO Q6H PRN #24 tab 08/22/20 02/17/21 Rx atorvastatin 40 mg PO QPM 02/17/21 02/17/21 History baclofen 10 mg PO BID PRN 02/17/21 02/17/21 History cyanocobalamin (vitamin B-12) 1,000 mcg PO Q OTHER DAY 02/17/21 02/17/21 History [Vitamin B-12] lansoprazole [Prevacid] 15 mg PO Q OTHER DAY 02/17/21 02/17/21 History Patient History Medical History (Updated 02/17/21 @ 19:03 by Satnam Carrillo DO) Atrial fibrillation, currently in sinus rhythm AFIB DX 4-5 YR AGO - HX CARDIOVERSION 2015 CAD (coronary artery disease) Cubital tunnel syndrome on right Diverticulosis GERD (gastroesophageal reflux disease) HX Heart disease History of anesthesia reaction ONLY ONE TIME WITH GENERAL ANESTHESIA HAD TROUBLE CATCHING BREATH - PT NOT SURE WHAT SURGERY THAT WAS WITH Pre-diabetes Right carpal tunnel syndrome Surgical History H/O colonoscopy H/O knee surgery RIGHT History of bilateral knee replacement History of esophagogastroduodenoscopy (EGD) History of laminectomy CERVICAL 1991 - DENIES LIMITED ROM - OCC NECK CRACKS History of lumbar fusion History of percutaneous left heart catheterization (LHC) HX HEART CATH FOR SYMPTOMS & STENT X 1 2009 [facility] History of repair of left rotator cuff History of repair of right rotator cuff S/P cholecystectomy HX OF Stented coronary artery HX STENT X 1 - 2009 [facility] Family History Other Family history of colon cancer in father Family history of colon cancer in mother Social History Smoking Status: Never smoker Hx Alcohol Use: Yes Alcohol type: beer Hx Substance Use: No Preferred Language: Citizen Of The [place] Communication Ability: Effective Visual Impairment: Limited Hearing Ability: Hard of Hearing Roving Department Supervisor Required: No Beliefs That Will Affect Care: None marital status: Current Living Situation: Spouse current occupational status: retired Feels Safe at Home: Yes Assistive Devices: Glasses Physical Exam Physical Exam: On exam he is comfortable supine. He has marked deficits to hip flexion and quads on the right with a 5/5 in the left. Plantar flexion dorsiflexion extensor hallucis longus is a 5/5 bilaterally. Sensory deficits to the right anterior thigh compared to the left. Results & Data ([facility]) Vital Signs (Past 12 Hours) Vital Signs Temp Pulse Resp BP Pulse Ox 02/17/21 17:55 76 18 120/60 99 02/17/21 16:36 80 18 123/69 99 02/17/21 14:55 77 18 123/69 99 02/17/21 14:07 37.3 C
--- NOTE | 2021-02-17 19:44 | Anesthesiology Consultation ---
Date of Service February 17, 2021 Assessment & Plan Chart Review Chart Review: Acceptable Risk for Surgery and Patient NOT seen in Pre Admission Testing Consults Requested none ASA ASA3 Proposed Anesthesia Anesthesia Type: General History Height/Weight Height: 6 ft 5 in Weight: 103.8 kg Allergies Allergy/AdvReac Type Severity Reaction Status Date / Time Sulfa (Sulfonamide Allergy Unknown PT NOT Verified 02/17/21 15:09 Antibiotics) SURE IF ALLERGIC TOO, ? HIVES Medications Home Medications Medication Instructions Recorded Confirmed Last Taken acetaminophen 500 mg tablet 1,000 mg PO QID PRN tab 05/31/19 02/17/21 08/15/20 aspirin 81 mg tablet,delayed 81 mg PO DAILY 05/31/19 02/17/21 02/17/21 release dabigatran etexilate 150 mg capsule 150 mg PO BID 05/31/19 02/17/21 02/17/21 08:00 nitroglycerin 0.4 mg sublingual 0.4 mg SL Q5M PRN 05/31/19 02/17/21 Unknown tablet sotalol 80 mg tablet 80 mg PO BID 05/31/19 02/17/21 02/17/21 08:00 cholecalciferol (vitamin D3) 50 mcg PO DAILY 08/08/20 02/17/21 02/17/21 [Vitamin D3] metformin 500 mg PO BID 08/08/20 02/17/21 02/17/21 08:00 tramadol 50 - 100 mg PO Q6H PRN #24 tab 08/22/20 02/17/21 Unknown atorvastatin 40 mg PO QPM 02/17/21 02/17/21 02/16/21 baclofen 10 mg PO BID PRN 02/17/21 02/17/21 Unknown cyanocobalamin (vitamin B-12) 1,000 mcg PO Q OTHER DAY 02/17/21 02/17/21 02/16/21 [Vitamin B-12] lansoprazole [Prevacid] 15 mg PO Q OTHER DAY 02/17/21 02/17/21 02/17/21 Past Medical History Medical History Atrial fibrillation, currently in sinus rhythm AFIB DX 4-5 YR AGO - HX CARDIOVERSION 2015 CAD (coronary artery disease) Cubital tunnel syndrome on right Diverticulosis GERD (gastroesophageal reflux disease) HX Heart disease History of anesthesia reaction ONLY ONE TIME WITH GENERAL ANESTHESIA HAD TROUBLE CATCHING BREATH - PT NOT SURE WHAT SURGERY THAT WAS WITH Pre-diabetes Right carpal tunnel syndrome Exercise / Class Metabolic Activity III < 4 Walking/Shop/Light housework Past Family History Family History Other Family history of colon cancer in father Family history of colon cancer in mother Past Surgical History Surgical History H/O colonoscopy H/O knee surgery RIGHT History of bilateral knee replacement History of esophagogastroduodenoscopy (EGD) History of laminectomy CERVICAL 1991 - DENIES LIMITED ROM - OCC NECK CRACKS History of lumbar fusion History of percutaneous left heart catheterization (LHC) HX HEART CATH FOR SYMPTOMS & STENT X [address] [facility] History of repair of left rotator cuff History of repair of right rotator cuff S/P cholecystectomy HX OF Stented coronary artery HX STENT X 1 - 2009 [facility] Past Anesthesia History No Hx of Anesthesia Complications and No Family Hx of Anesthesia Complications History of PONV No Hx of PONV and No Hx of Motion Sickness Social History Smoking Status: Never smoker Hx Alcohol Use: Yes Alcohol type: beer alcohol intake frequency: holidays/special occasions only Hx Substance Use: No substance use type: does not use Physical Exam Vital Signs Last Vital Signs Temp 36.5 C 02/17/21 18:38 Pulse 81 02/17/21 18:38 Resp 14 02/17/21 18:38 BP 132/80 02/17/21 18:38 Pulse Ox 92 02/17/21 18:38 Testing Laboratory Results 02/17/21 14:18 02/17/21 14:18 Echocardiogram Date: 09/11/16 EF: 55% LV Function: normal RWMA: + none Valvular Disease: + MR (mild mr)
[2021-02-17] MEDS: SOTALOL HCL 80 MG TAB PO SCH (20:31)
[2021-02-17] MEDS: HYDROmorphone INJ 0.5 MG/0.5 ML SYR IV PRN (20:31)
[2021-02-17] MEDS: ATORVASTATIN 40 MG TAB PO SCH (20:31)
[2021-02-17] MEDS: DABIGATRAN ETEXILATE 75 MG CAP PO SCH (20:33)
[2021-02-17] MEDS: dexAMETHasone 4 MG in SYRINGE 0 ML IV SCH (21:18)
[2021-02-17] MEDS: INSULIN ASPART 100 UNITS/ML 3 ML PEN SC SCH (21:19)
[2021-02-18] MEDS: HYDROmorphone INJ 0.5 MG/0.5 ML SYR IV PRN (02:36)
[2021-02-18] MEDS ORDERED: HYDROmorphone INJ 0.5 MG/0.5 ML SYR IV STA (05:02)
[2021-02-18] MEDS ORDERED: MoRPHine SULFATE 4 MG/ML 1 ML CARP\\VIAL IV PRN (07:50)
[2021-02-18] MEDS: LIDOCAINE 5% 1 PATCH TD SCH (08:19)
[2021-02-18] MEDS: CHOLECALCIFEROL 1,000 UNITS 25 MCG TAB PO SCH (08:32)
[2021-02-18] MEDS: ASPIRIN 81 MG ECTAB PO SCH (08:32)
[2021-02-18] MEDS: SOTALOL HCL 80 MG TAB PO SCH ×2 (08:32→21:38)
[2021-02-18] MEDS: DABIGATRAN ETEXILATE 75 MG CAP PO SCH (08:32)
[2021-02-18] MEDS: CYANOCOBALAMIN 500 MCG TABLET (VITAMIN B-12) PO SCH (08:32)
[2021-02-18] MEDS: dexAMETHasone 4 MG in SYRINGE 0 ML IV SCH ×2 (09:01→21:35)
[2021-02-18] MEDS: INSULIN ASPART 100 UNITS/ML 3 ML PEN SC SCH ×4 (09:21→22:12)
--- NOTE | 2021-02-18 09:23 | Electrocardiogram Report ---
Test Reason : Blood Pressure : / mmHG Vent. Rate : 078 BPM Atrial Rate : 078 BPM P-R Int : 000 ms QRS Dur : 092 ms QT Int : 408 ms P-R-T Axes : 000 024 -20 degrees QTc Int : 465 ms Sinus rhythm with frequent Premature atrial complexes Incomplete right bundle branch block Nonspecific T wave abnormality Inferior leads Abnormal ECG When compared with ECG of 31-JUL-2020 10:33, Nonspecific T wave abnormality Inferior leads now present Confirmed by Alexander Kraft ([id number]) on 02/18/2021 9:23:35 AM Referred By: REFERRED SELF Confirmed By:Alexander Kraft
[2021-02-18] MEDS: MoRPHine SULFATE 4 MG/ML 1 ML CARP\\VIAL IV PRN ×3 (11:28→20:10)
--- NOTE | 2021-02-18 13:52 | Orthopedic Progress Note ---
Date of Service February 18, 2021 Assessment & Plan (1) Lumbar disc herniation with radiculopathy: Admission and Anticipated Discharge Date Admission Date: February 18, 2021 Patient is struggling with severe spinal stenosis with herniated free fragment of disc material at L3-L4. Would like to perform surgery soon as possible. He did take half of his normal anticoagulant dose Thursday. He had none today. We should be safe to proceed with surgery tomorrow afternoon. He would require a lumbar decompression and fusion L2-3 L3-4 with removal of instrumentation L4-L5 L5-S1. Patient understands agrees. We will make him n.p.o. after midnight. Subjective Patient continues to have incapacitating right-sided back and right buttock pain. He is unable to sit up without excruciating discomfort. He is unable to ambulate at this time. IV Dilaudid failed to provide any significant relief he is getting modest improvement with IV morphine. He is quite anxious to have surgery. Physical Exam Physical Exam: On exam he is lying supine in bed. He exhibits marked discomfort when trying to sit up. He does have quadricep deficit hip flexion deficit on the right compared to the left both sensory and motor. Results & Data ([facility]) Vital Signs (Past 12 Hours) Vital Signs Temp Pulse Resp BP Pulse Ox 02/18/21 07:23 37.0 C 78 16 122/67 92
--- NOTE | 2021-02-18 14:43 | Hospitalist Progress Note ---
Date of Service February 18, 2021 Assessment & Plan (1) Intractable back pain: History of lumbar fusion and decompression in 2013 Increasing back pain at the surgical site for the last 2 to 3 weeks which is worse over the last week MRI was done on Thursday last results are pending Presented to ER with intractable pain localized with minimal radiation We will give adequate pain medications and steroid for now Further management as per orthopedic surgery Appreciate Ortho input and recommendation for surgery tomorrow afternoon He took half the dose of Pradaxa on Thursday and got another dose this morning Discussed with Dr. Carrillo and he will be okay for surgery tomorrow afternoon Due to the acuity of the symptoms the patient will be taken to the OR tomorrow We are holding any further Pradaxa for now (2) Radiculopathy: Mild radiculopathy involving the right thigh and buttock area No problem with urine and bowel habit Has significant pain with radiculopathy which requires urgent surgery (3) Atrial fibrillation, currently in sinus rhythm: Rate is controlled and seems to be in sinus rhythm We will get EKG Continue sotalol and other medication Remains in sinus rhythm rate of 78/min Has been on Pradaxa for paroxysmal atrial fibrillation Pradaxa is on hold now for proposed surgery (4) HTN (hypertension): Controlled now (5) Chronic anticoagulation: Received 1 dose of Pradaxa early this morning Half dose of Pradaxa received on Thursday last Pradaxa will be hold for proposed surgery tomorrow afternoon Will hold aspirin now CODE STATUS Full Admission and Anticipated Discharge Date Admission Date: February 18, 2021 Subjective 02/18/2021 The patient was seen and examined in medical floor He is in severe back pain and cannot move at whole due to the pain He has not moved his bowel but has been voiding normally He denies any other symptoms Review of Systems Review of Systems: All systems reviewed and are unremarkable except as noted below Musculoskeletal: Severe lower back pain with radiation to the right buttock and right upper thigh Physical Exam Physical Exam: Lying in bed with severe discomfort and lying on the left side to relief back pain. Constitutional: well developed, well nourished and + ill appearing Eyes: PERRL, conjunctivae normal, anicteric sclerae ENMT: external ear and nose normal, oropharynx normal Neck: trachea midline, no thyromegaly Respiratory: no respiratory distress Auscultation: lungs clear to auscultation bilaterally Cardiovascular: Rate/Rhythm: regular rate and regular rhythm Heart Sounds: no murmur Extremities: no edema Gastrointestinal (Abdomen): Inspection/Auscultation: normal bowel sounds; abdomen not distended Percussion/Palpation: abdomen soft; abdomen nontender Musculoskeletal: Very tender lower lumbar area. Detailed examination was not possible due to severity of pain Neurologic: Alert, awake and oriented x3 Psychiatric: A+Ox3, euthymic affect Results & Data Results & Data ([facility]) Vital Signs (Past 12 Hours) Vital Signs Temp Pulse Resp BP Pulse Ox 02/18/21 07:23 37.0 C 78 16 122/67 92 Laboratory Results Short CBC 02/17/21 Range/Units 14:18 WBC 14.24 H (4.8-10.8) K/uL Hgb 13.4 L (14.0-18.0) g/dL Hct 41.4 L (42-52) % Plt Count 612 H (130-400) K/uL BMP 02/17/21 14:18 Sodium 139 Potassium 4.3 Chloride 103 Carbon Dioxide 29 BUN 16 Creatinine 0.57 L Glucose 123 H Calcium 9.2 Medications Administered Current Inpatient Medications Acetaminophen (Acetaminophen 500 Mg Tab) 500 mg PO QID PRN PRN Reason: Pain Stop: 03/19/21 18:38 Aspirin (Aspirin 81 Mg Ectab) 81 mg PO DAILY [facility] Stop: 03/20/21 08:59 Last Admin: 02/18/21 08:32 Dose: 81 mg Documented by: Atorvastatin Calcium (Atorvastatin 40 Mg Tab) 40 mg PO QPM [facility] Stop: 03/19/21 20:59 Last Admin: 02/17/21 20:31 Dose: 40 mg Documented by: Baclofen (Baclofen 10 Mg Tab) 10 mg PO BID PRN PRN Reason: MUSCLE SPASMS Stop: 03/19/21 18:32 Last Admin: 02/18/21 03:43 Dose: 10 mg Documented by: Cyanocobalamin (Cyanocobalamin 500 Mcg Tablet (Vitamin B-12)) 1,000 mcg PO Q2D@0900 [facility] Stop: 03/20/21 08:59 Last Admin: 02/18/21 08:32 Dose: 1,000 mcg Documented by: Dexamethasone 4 mg/ Syringe 1 mls @ 1 mls/min IV Q12H [facility] Stop: 03/19/21 21:59 Last Admin: 02/18/21 09:01 Dose: 1 mls/min Documented by: Insulin Aspart (Insulin Aspart 100 Units/Ml 3 Ml Pen) 0 units SC ACHS [facility] Stop: 03/19/21 20:59 Last Admin: 02/18/21 13:23 Dose: 1 units Documented by: Lidocaine (Lidocaine 5% 1 Patch) 1 patch TD QAM [facility] Stop: 03/20/21 08:59 Last Admin: 02/18/21 08:19 Dose: 1 patch Documented by: Isai (Remove Lidoderm Patch) 1 ea N/A DAILY@2100 [facility] Stop: 03/19/21 20:59 Last Admin: 02/17/21 20:29 Dose: 1 ea Documented by: Isai (Remove Lidoderm Patch) 1 ea N/A DAILY@2100 [facility] Stop: 03/20/21 20:59 Morphine Sulfate (Morphine Sulfate 4 Mg/Ml 1 Ml Carp\Vial) 6 mg IV Q3H PRN PRN Reason: Pain Stop: 03/04/21 07:49 Last Admin: 02/18/21 11:28 Dose: 6 mg Documented by: Nitroglycerin (Nitroglycerin Sl 0.4 Mg/Tab Tab) 0.4 mg SL Q5M PRN PRN Reason: Chest Pain Stop: 03/19/21 18:32 Pantoprazole Sodium (Pantoprazole 40 Mg Tab) 40 mg PO Q2D@0900 [facility] Stop: 03/21/21 08:59 Sotalol HCl (Sotalol Hcl 80 Mg Tab) 80 mg PO BID [facility] Stop: 03/19/21 20:59 Last Admin: 02/18/21 08:32 Dose: 80 mg Documented by: Vitamin D (Cholecalciferol 1,000 Units 25 Mcg Tab) 2,000 units PO DAILY [facility] Stop: 03/20/21 08:59 Last Admin: 02/18/21 08:32 Dose: 2,000 units Documented by:
[2021-02-18] MEDS ORDERED: LORazepam 0.5 MG TAB PO STA (20:48)
[2021-02-18] MEDS: ATORVASTATIN 40 MG TAB PO SCH (21:33)
[2021-02-18] MEDS ORDERED: Nursing to Pharmacy Communication SCH (22:15)
[2021-02-18] MEDS ORDERED: HYDROmorphone INJ 1 MG/ML SYRINGE IV PRN (22:42)
[2021-02-18] MEDS ORDERED: PIPERACILL/TAZOBAC CONSULT ACTIVE PRN (22:43)
[2021-02-18] MEDS ORDERED: PIPERACILLIN/TAZOBACTAM 3.375 GM in DEXTROSE 5% 100 ML IV ONE (23:15)
[2021-02-18 23:26] LABS: Basophils # (auto) 0.01 K/uL (0-0.2); Basophils % (auto) 0.1 %; Hematocrit (blood only) 41.2 % (42-52); Immature Granulocytes # (auto) 0.09 K/uL (0.00-0.02); Immature Granulocytes % (auto) 0.5 %; Lymphocytes # (auto) 0.93 K/uL (1.2-3.4); Lymphocytes % (auto) 5.2 %; Mean Corpuscular Hemoglobin 29.9 pg (25-34); Mean Corpuscular Volume 87.8 fL (80-100); Mean Platelet Volume 8.5 fL (7.4-10.4); Monocytes # (auto) 0.72 K/uL (0.11-0.59); Neutrophils # (auto) 16.04 K/uL (1.4-6.5); Neutrophils % (auto) 90.2 %; Platelet Count 743 K/uL (130-400); RDW Coefficient of Variation 13.9 % (11.5-14.5); RDW Standard Deviation 44.8 fL (36.4-46.3); Red Blood Count 4.69 M/uL (4.7-6.1); White Blood Count 17.79 K/uL (4.8-10.8)
[2021-02-18 23:46] LABS: Albumin Level 2.5 gm/dl (3.4-5.0); BUN Creatinine Ratio 31.2 (10-20); Calcium 8.9 mg/dl (8.5-10.1); Creatinine Clr Calc Pharmacy 111.1 ml/min; Est GFR (Non-African American) 91.5; Potassium 4.3 mmol/L (3.5-5.1)
[2021-02-18 23:48] LABS: Albumin Globulin Ratio 0.5 (0.9-2); Bilirubin,Total 0.7 mg/dl (0.2-1); Globulin 4.6 gm/dl (2.5-4.0); Total Protein 7.1 gm/dl (6.4-8.2)
[2021-02-19] MEDS: MoRPHine SULFATE 10 MG/ML CARP/VIAL IV PRN ×2 (00:11→04:42)
[2021-02-19] MEDS ORDERED: LORazepam 0.25 MG/0.5 ML VIAL IV STA (01:42)
[2021-02-19] MEDS: PIPERACILLIN/TAZOBACTAM 3.375 GM in DEXTROSE 5% 100 ML IV SCH ×3 (05:10→22:03)
--- NOTE | 2021-02-19 07:58 | History & Physical Bridge Note ---
Date of Service February 19, 2021 History & Physical Bridge Note I have examined the patient, reviewed the History & Physical and in the interval since the performance of the History & Physical I have noted the following changes of clinical significance: no changes noted Patient continues to have severe back and right buttock pain and inability to ambulate. He has now been off his anticoagulation for 48 hours and is at increased risk for cardiac event and DVT. Subsequently I am declaring this a surgical emergency in order to decompress the spinal canal remove the herniated disc and bony stenosis off of his nerves and allow him to get up and ambulate as soon as possible and then restart his anticoagulation therapy. Please note attempts have been made to review his MRI findings with the radiologist that interpreted the study. It is my opinion that he failed to note the large disc herniation at L3-L4 with cephalad migration and severe neural encroachment. This is what accounts for a significant component of the patient's limitation. We will move forward with a lumbar decompression and fusion L2-3 L3-4 and removal of instrumentation at L4-5 L5-S1.
[2021-02-19] MEDS: INSULIN ASPART 100 UNITS/ML 3 ML PEN SC SCH ×4 (08:02→22:00)
[2021-02-19] MEDS ORDERED: MoRPHine SULFATE 2 MG/ML CARP ONE (08:03)
[2021-02-19] MEDS ORDERED: MoRPHine SULFATE 4 MG/ML 1 ML CARP\\VIAL ONE (08:04)
--- NOTE | 2021-02-19 08:10 | XRay Report ---
XR chest 1V portable CLINICAL HISTORY: fever COMPARISON STUDY: Chest radiograph September 10, 2016. FINDINGS: Incidental note is made of cholecystectomy clips. Lung volumes are diminished. Left basilar opacity is present. No evidence for pulmonary edema. Cardiomediastinal silhouette is stable. IMPRESSION: Low lung volumes. Left basilar opacity favors atelectasis although an infectious process could appear similar. Radiographic follow-up is recommended. ACT 112: Negative or not required by law. Electronically signed by: Mt Alicia M.D. 02/19/2021 8:09 AM
[2021-02-19] MEDS: CHOLECALCIFEROL 1,000 UNITS 25 MCG TAB PO SCH (08:42)
[2021-02-19] MEDS: ASPIRIN 81 MG ECTAB PO SCH (08:42)
[2021-02-19] MEDS: LIDOCAINE 5% 1 PATCH TD SCH (08:43)
[2021-02-19] MEDS: PANTOprazole 40 MG TAB PO SCH (08:43)
[2021-02-19] MEDS ORDERED: MIDAZOLAM HCL 1 MG/ML 2ML VIAL ONE (09:22)
[2021-02-19] MEDS ORDERED: ROCURONIUM BROMIDE 10 MG/ML 5 ML VIAL IV ONE ×4 (09:22→13:15)
[2021-02-19] MEDS ORDERED: PROPOFOL IV EMULSION 10 MG/ML 20 ML VIAL IV ONE (09:22)
[2021-02-19] MEDS ORDERED: LIDOCAINE HCL 2% 2 ML VIAL/AMP(20MG/ML) INFIL ONE (09:22)
[2021-02-19] MEDS ORDERED: KETAMINE 50 MG/5 ML SYRINGE ONE (09:22)
[2021-02-19] MEDS ORDERED: DEXAMETHASONE SOD INJ 4 MG/ML VIAL ONE (09:22)
[2021-02-19] MEDS ORDERED: fentaNYL citrate 100 MCG/2 ML VIAL ONE (09:22)
[2021-02-19] MEDS ORDERED: ONDANSETRON INJ 2 MG/ML 2 ML VIAL ONE (09:22)
[2021-02-19] MEDS: dexAMETHasone 4 MG in SYRINGE 0 ML IV SCH ×2 (09:49→21:57)
[2021-02-19] MEDS: SOTALOL HCL 80 MG TAB PO SCH ×2 (09:49→21:57)
[2021-02-19 09:55] LABS: Appearance Urine Clear (Clear); Bacteria Urine Automated Negative (Negative); Bilirubin Urine Negative (Negative); Blood Urine Trace (Negative); Color Urine Yellow; Epithelial Cell Urine Auto 0-5 /lpf (0-5); Glucose Urine UA Negative (Negative); Ketones Urine Negative (Negative); Leukocyte Esterase Urine Negative (Negative); Nitrite Urine Negative (Negative); Protein Urine Negative (Negative); Specific Gravity Urine 1.027 (1.000-1.030); Urobilinogen Urine Negative (Negative)
[2021-02-19] MEDS ORDERED: ePHEDrine sulfate 50 MG/ML AMP IV PRN (10:45)
[2021-02-19] MEDS ORDERED: fentaNYL citrate 100 MCG/2 ML VIAL IV PRN (10:45)
[2021-02-19] MEDS ORDERED: METOCLOPRAMIDE HCL INJ 5 MG/ML 2 ML VIAL IV PRN ×2 (10:45→16:09)
[2021-02-19] MEDS ORDERED: HYDROmorphone INJ 2 MG/ML SYR/VIAL IV PRN (10:45)
[2021-02-19] MEDS ORDERED: ONDANSETRON INJ 2 MG/ML 2 ML VIAL IV PRN (10:45)
[2021-02-19] MEDS ORDERED: ATROPINE SULFATE 0.1 MG/ML 10ML SYR IV PRN (10:45)
[2021-02-19] MEDS ORDERED: PROMETHAZINE HCL 12.5 MG in SODIUM CHLORIDE 0.9% 50 ML IV PRN ×2 (10:45→16:09)
[2021-02-19] MEDS ORDERED: BUPIVACAINE/EPINEPHRINE 0.5% MPF 1:200,000 30 ML VIAL ONE (10:49)
[2021-02-19] MEDS ORDERED: FLOSEAL HEMOSTATIC MATRIX 10ML TOP ONE (11:43)
[2021-02-19] MEDS ORDERED: GLYCOPYRROLATE 0.2 MG/ML VIAL ONE (12:25)
[2021-02-19] MEDS ORDERED: PHENYLEPHRINE 100MCG/ML 5ML SYR ONE (12:25)
[2021-02-19] MEDS ORDERED: NEOSTIGMINE METHYLSULFATE 1 MG/ML 10ML VIAL ONE (12:25)
[2021-02-19] MEDS ORDERED: VANCOMYCIN HCL 1000MG/20ML VIAL ONE (12:48)
[2021-02-19] MEDS ORDERED: GENTAMICIN SULFATE 40 MG/ML 2 ML VIAL ONE (12:48)
[2021-02-19] MEDS ORDERED: VANCOMYCIN CONSULT ACTIVE PRN (13:19)
[2021-02-19] MEDS ORDERED: VANCOMYCIN HCL 1,000 MG/270 ML BAG IV STA (13:19)
--- NOTE | 2021-02-19 13:29 | Operative Report ---
Post Operative Report Pre & Post Diagnosis Operation Date: 02/19/21 10:45 Pre-Op Diagnosis: Intractable Back Pain with radiculopathy Post-Op Diagnosis: #1 Lumbar epidural abscess L3-L4. #2 infected facet cyst L3-L4 on the right. I identified the patient and participated in the time-out.: Yes Procedure Operation Date: 02/19/21 10:45 Actual Procedures #1 removal of posterior instrumentation L4-5 L5-S1. #2 exploration of fusion L4- 5 L5-S1. #3 lumbar decompression with bilateral medial facetectomies and foraminotomies L2-3 L3-4. #4 posterior spinal fusion L2-3 L3-4. #5 patient posterior instrumentation L3-4 L4-5. #6 placement of infuse collagen sponge, master graft in the posterior gutters. #7 placement of stimulan beads impregnated with vancomycin gentamicin. Surgeon Satnam Carrillo, Upset Operator Marielena Christopher Estimated Blood Loss 200 Findings Consistent with Post-Op Diagnosis Specimens Epidural and facet cultures of the lumbar spine Indications This is a 70-year-old male who presents to the hospital marked decline in status. He had severe back pain with radiation to the right buttock and anterior thigh consistent with an L3 radiculopathy. Preoperatively I felt he had evidence of a large disc herniation occupying the spinal canal contributing to his limitation. Intraoperatively discovered a massive facet cyst infected at L3-4 on the right with subsequent epidural abscess contributing to neural compression. Description of Procedure Patient was met with identified informed consent obtained. Patient was then taken to the operative suite underwent a patient placed in a prone position Stefan table top Matt frame. All bony prominences well-padded eyes inspected to ensure no external pressure placed upon the. This point lumbar spine was prepped and draped in a sterile fashion. Sharp dissection with the assistance of Bovie cautery performed down to and exposing the lamina and transverse processes of L3-L3 L4 and instrumentation at L4-L5 and S1 levels bilaterally. Upon dissection of the L3-L4 facet gross purulence was identified directly from the facet joint. Cultures were obtained at that time. I then proceeded to move the hardware at L4-L5 and S1 levels exploring the fusion mass noted to be mature and intact. I did forego removal of the S1 pedicle screw on the right is was completely encased in bone. I then performed a complete laminectomy of L3 and L2 including bilateral medial facetectomies and foraminotomies identifying extension of the facet cyst infection and L3-4 on the right as well as a large epidural abscess occupying the foramen and anterior aspect of L3 vertebral body. After complete evacuation and decompression pedicle screws were placed in L2-L3-L4 bilaterally with assistance of fluoroscopy the proper sized juanita locked in position. The transverse processes of L2-L3-L4 burred to subcortical bleeding bone. Infuse collagen sponge master graft local autograft placed in posterior gutters. Beads impregnated with vancomycin gentamicin were then placed throughout the incision and along the facet joint. 15 round YULIYA drain inserted. Incision was then closed with 1 Vicryl to fascia 2-0 Vicryl subcutaneously and 4 Monocryl for final skin closure. Steri-Strip sterile dressings placed. Patient will continue PACU stable condition. Please note spinal cord monitoring was utilized at the procedure no changes noted. Lastly Marielena Christopher was present at the entire surgery involved the patient positioning complex portions of the surgery and final skin closure. I attest to the content of the Intraoperative Record and any orders documented therein. Any exceptions are noted below.
[2021-02-19] MEDS ORDERED: PIPERACILLIN/TAZOBACTAM 4.5 GM in DEXTROSE 5% 100 ML IV SCH (13:30)
[2021-02-19] MEDS ORDERED: VANCOMYCIN HCL 2,750 MG in SODIUM CHLORIDE 0.9% 500 ML IV ONE (14:00)
--- NOTE | 2021-02-19 14:06 | Pharmacy Report ---
Pharmacy Abx Initial Consult - Date of Service February 19, 2021 - Pharmacy Dosing Scope Date of Consult: 02/19/21 Consultation requested by: Dr. Jaime Pharmacy is consulted to initiate Vancomycin (also on Zosyn) IV dosing therapy, order appropriate labs and adjust drug dose/frequency. - Subjective The patient is a 70 year old M admitted on 02/18/21 09:43. - Objective Height: 6 ft 5 in Weight: 103.8 kg Vital Signs (Past 12hrs): Vital Signs Temp Pulse Resp BP Pulse Ox 02/19/21 09:45 38.3 C H 94 H 18 132/82 91 02/19/21 07:22 37.7 C H 92 H 16 128/77 92 Lab Results (24hrs): Laboratory Tests (24 Hours) 02/18/21 02/18/21 23:06 23:06 WBC 17.79 H Neut # (Auto) 16.04 H Creatinine 0.78 Est Cr Clr Drug Dosing 111.1 Micro Results: 02/18/21 23:06 Aerobic Blood Culture - Pending Blood 02/18/21 23:17 Aerobic Blood Culture - Pending Blood 02/19/21 11:47 Gram Stain - Pending Back Aerobic and Anaerobic Culture - Pending - Assessment & Plan Assessment 70 year old M initiated on Vancomycin + Zosyn for Lumbar epidural abscess L3-L4 & infected facet cyst L3-L4 on the right. Blood cultures growing GPC- Vanco added to Zosyn (started yesterday) Back cultures pending Plan Vancomycin IV * Loading dose: 2,750 mg (25 mg/kg) * Maintenance dose: 1,500 mg IV (14 mg/kg) every 8 hours * Goal trough level for Bone/Joint : 15 to 20 mcg/mL * Trough level ordered for 02/20/21 @ 1330 * This will NOT be steady state but necessary to check a level early to ensure that trough level is at least 10 mcg/ml for adequate penetration and time above LUIS Piperacillin/tazobactam * 3.375g bolus administered over 30 minutes, then 3.375 g IV extended infusion every 8 hours for CrCl greater than 20 mL/min Pharmacy will continue to follow and will adjust dose/frequency as necessary. Thank you.
--- NOTE | 2021-02-19 14:19 | Fluoroscopy Report ---
FL lumbar spine 2-3V CLINICAL HISTORY: L2-L4 DECOMPRESSION, L4-S1 HARDWARE REMOVAL COMPARISON STUDY: MRI of the lumbar spine June 14, 2019. FLUOROSCOPY TIME: 18 seconds. FLUOROSCOPIC IMAGES: 2 FINDINGS: Exact localization is difficult given partial visualization of the lumbar spine. Previous L 4-L5 discectomy is noted. Posterior decompression likely extending from L2 through L4 is noted with b ilateral pedicle screws and interconnecting rods. Hardware is intact. IMPRESSION: Fluoroscopy provided during posterior decompression and L2-L4 bilateral pedicle screw fu mick. ACT 112: Negative or not required by law. Electronically signed by: Mt Alicia M.D. 02/19/2021 2:17 PM
--- NOTE | 2021-02-19 15:06 | Hospitalist Progress Note ---
Date of Service February 19, 2021 Assessment & Plan (1) Intractable back pain: History of lumbar fusion and decompression in 2013 Increasing back pain at the surgical site for the last 2 to 3 weeks which is worse over the last week MRI was done on Thursday last results are pending Presented to ER with intractable pain localized with minimal radiation We will give adequate pain medications and steroid for now Further management as per orthopedic surgery Appreciate Ortho input and recommendation for surgery tomorrow afternoon He took half the dose of Pradaxa on Thursday and got another dose this morning Discussed with Dr. Carrillo and he will be okay for surgery tomorrow afternoon Due to the acuity of the symptoms the patient will be taken to the OR tomorrow We are holding any further Pradaxa for now Status post lumbar surgery as documented below Back pain is much improved (2) Abscess in epidural space of lumbar spine: Has lumbar epidural abscess L3-L4 and infected facet cyst L3-L4 on the right Status post: Removal of posterior instrumentation L4-5 and L5-S1 Exploration of fusion L4-5 L5-S1 Lumbar decompression with bilateral medial vasectomies and foraminotomies Posterior spinal fusion L2-3 and L3-L4 next posterior instrumentation Placement of infusion collagen sponge next placement of stimulant beads impregnated with vancomycin and gentamicin Management as per Ortho Blood cultures are positive for gram-positive cocci in clusters-await sensitivity Wound culture Gram stain showed gram-positive cocci, sensitivity is pending but it did not show any MRSA Has been placed on intravenous vancomycin and Zosyn Will monitor CBC and CMP (3) Radiculopathy: Mild radiculopathy involving the right thigh and buttock area No problem with urine and bowel habit Has significant pain with radiculopathy which requires urgent surgery Radiculopathic pain is improved (4) Atrial fibrillation, currently in sinus rhythm: Rate is controlled and seems to be in sinus rhythm We will get EKG Continue sotalol and other medication Remains in sinus rhythm rate of 78/min Has been on Pradaxa for paroxysmal atrial fibrillation Pradaxa is on hold now for proposed surgery We will restart anticoagulation as soon as okay from Ortho (5) HTN (hypertension): Controlled now (6) Chronic anticoagulation: Received 1 dose of Pradaxa early this morning Half dose of Pradaxa received on Thursday last Pradaxa will be hold for proposed surgery tomorrow afternoon CODE STATUS Full Admission and Anticipated Discharge Date Admission Date: February 18, 2021 Subjective 02/18/2021 The patient was seen and examined in medical floor He is in severe back pain and cannot move at whole due to the pain He has not moved his bowel but has been voiding normally He denies any other symptoms 02/19/2021 The patient was seen and examined in medical floor He is a status post lumbar decompression and fusion and also evacuation of epidural abscess Has been feeling a lot better since surgery though has some drowsiness Denies any nausea and or vomiting, any fever and/or chills Review of Systems Review of Systems: All systems reviewed and are unremarkable except as noted below Musculoskeletal: The back pain is much improved and there is no radiation of pain Physical Exam Physical Exam: Lying in bed with minimal discomfort and lying on the right side to relief back pain. Constitutional: well developed, well nourished and + ill appearing Eyes: PERRL, conjunctivae normal, anicteric sclerae ENMT: external ear and nose normal, oropharynx normal Neck: trachea midline, no thyromegaly Respiratory: no respiratory distress Auscultation: lungs clear to auscultation bilaterally Cardiovascular: Rate/Rhythm: regular rate and regular rhythm Heart Sounds: no murmur Extremities: no edema Gastrointestinal (Abdomen): Inspection/Auscultation: normal bowel sounds; abdomen not distended Percussion/Palpation: abdomen soft; abdomen nontender Musculoskeletal: Back pain is much better following surgery and denies any radiation of pain Neurologic: Alert, awake and oriented x3. Psychiatric: A+Ox3, euthymic affect Results & Data Results & Data ([facility]) Vital Signs (Past 12 Hours) Vital Signs Temp Pulse Pulse Resp BP Pulse Ox 02/19/21 14:50 98 H 20 116/78 95 02/19/21 14:40 37.4 C 94 H 18 113/74 94 02/19/21 14:30 97 H 20 118/74 95 02/19/21 14:20 97 H 20 120/81 95 02/19/21 14:10 95 H 20 131/81 95 02/19/21 14:00 93 H 18 133/82 94 02/19/21 13:50 92 H 20 134/85 97 02/19/21 13:48 36.1 C L 94 H 16 136/89 93 02/19/21 09:45 38.3 C H 94 H 18 132/82 91 02/19/21 07:22 37.7 C H 92 H 16 128/77 92 Laboratory Results Short CBC 02/18/21 Range/Units 23:06 WBC 17.79 H (4.8-10.8) K/uL Hgb 14.0 (14.0-18.0) g/dL Hct 41.2 L (42-52) % Plt Count 743 H (130-400) K/uL BMP 02/18/21 23:06 Sodium 137 Potassium 4.3 Chloride 102 Carbon Dioxide 27 BUN 24 H Creatinine 0.78 Glucose 140 H Calcium 8.9 Liver Function 02/18/21 Range/Units 23:06 Total Bilirubin 0.7 (0.2-1) mg/dl AST 10 L (15-37) U/L ALT 23 (12-78) U/L Alkaline Phosphatase 83 (45-117) U/L Albumin 2.5 L (3.4-5.0) gm/dl Urine 02/19/21 Range/Units 09:40 Urine Color Yellow Urine Appearance Clear (Clear) Urine pH 5.0 (4.5-7.5) Ur Specific [place] 1.027 (1.000-1.030) Urine Protein Negative (Negative) Urine Glucose (UA) Negative (Negative) Medications Administered Current Inpatient Medications Acetaminophen (Acetaminophen 500 Mg Tab) 500 mg PO QID PRN PRN Reason: Pain Stop: 03/19/21 18:38 Last Admin: 02/18/21 22:22 Dose: 500 mg Documented by: Aspirin (Aspirin 81 Mg Ectab) 81 mg PO DAILY [facility] Stop: 03/20/21 08:59 Last Admin: 02/19/21 08:42 Dose: Not Given Documented by: Atorvastatin Calcium (Atorvastatin 40 Mg Tab) 40 mg PO QPM [facility] Stop: 03/19/21 20:59 Last Admin: 02/18/21 21:33 Dose: 40 mg Documented by: Baclofen (Baclofen 10 Mg Tab) 10 mg PO BID PRN PRN Reason: MUSCLE SPASMS Stop: 03/19/21 18:32 Last Admin: 02/18/21 03:43 Dose: 10 mg Documented by: Cyanocobalamin (Cyanocobalamin 500 Mcg Tablet (Vitamin B-12)) 1,000 mcg PO Q2D@0900 [facility] Stop: 03/20/21 08:59 Last Admin: 02/18/21 08:32 Dose: 1,000 mcg Documented by: Dexamethasone 4 mg/ Syringe 1 mls @ 1 mls/min IV Q12H [facility] Stop: 03/19/21 21:59 Last Admin: 02/19/21 09:49 Dose: Not Given Documented by: Piperacillin Sod/Tazobactam (Sod 3.375 gm/ Dextrose) 115 mls @ 28.75 mls/hr IV Q8H [facility]; Protocol Stop: 02/21/21 03:59 Last Admin: 02/19/21 12:57 Dose: Not Given Documented by: Vancomycin HCl 2,750 mg/ (Sodium Chloride) 555 mls @ 200 mls/hr IV NOW ONE Stop: 02/19/21 16:46 Vancomycin HCl 1,500 mg/ (Sodium Chloride) 530 mls @ 200 mls/hr IV Q8 [facility] Stop: 03/05/21 21:59 Insulin Aspart (Insulin Aspart 100 Units/Ml 3 Ml Pen) 0 units SC ACHS [facility] Stop: 03/19/21 20:59 Last Admin: 02/19/21 12:57 Dose: Not Given Documented by: Lidocaine (Lidocaine 5% 1 Patch) 1 patch TD QAM [facility] Stop: 03/20/21 08:59 Last Admin: 02/19/21 08:43 Dose: Not Given Documented by: Metoclopramide HCl (Metoclopramide Hcl Inj 5 Mg/Ml 2 Ml Vial) 10 mg IV ONCE PRN PRN Reason: PACU Use Only-Nausea/Vomiting Stop: 02/19/21 18:45 Miscellaneous (Remove Lidoderm Patch) 1 ea N/A DAILY@2100 [facility] Stop: 03/20/21 20:59 Last Admin: 02/18/21 22:43 Dose: Not Given Documented by: Miscellaneous Information (Piperacill/Tazobac Consult Active) 1 ea N/A UD PRN PRN Reason: Consult Stop: 03/20/21 22:42 Miscellaneous Information (Vancomycin Consult Active) 1 ea N/A UD PRN PRN Reason: Consult Stop: 03/21/21 13:18 Morphine Sulfate (Morphine Sulfate 10 Mg/Ml Carp/Vial) 6 mg IV Q3H PRN PRN Reason: Pain Stop: 03/04/21 23:41 Last Admin: 02/19/21 04:42 Dose: 6 mg Documented by: Nitroglycerin (Nitroglycerin Sl 0.4 Mg/Tab Tab) 0.4 mg SL Q5M PRN PRN Reason: Chest Pain Stop: 03/19/21 18:32 Pantoprazole Sodium (Pantoprazole 40 Mg Tab) 40 mg PO Q2D@0900 [facility] Stop: 03/21/21 08:59 Last Admin: 02/19/21 08:43 Dose: Not Given Documented by: Sotalol HCl (Sotalol Hcl 80 Mg Tab) 80 mg PO BID [facility] Stop: 03/19/21 20:59 Last Admin: 02/19/21 09:49 Dose: Not Given Documented by: Vitamin D (Cholecalciferol 1,000 Units 25 Mcg Tab) 2,000 units PO DAILY [facility] Stop: 03/20/21 08:59 Last Admin: 02/19/21 08:42 Dose: Not Given Documented by:
[2021-02-19] MEDS ORDERED: MAGNESIUM HYDROXIDE SUSP 30 ML UDC PO PRN (16:09)
[2021-02-19] MEDS ORDERED: DO NOT ADMINISTER PNEUMOCOCCAL VACCINE PRN (16:09)
[2021-02-19] MEDS ORDERED: diphenhydrAMINE Capsule 25 MG CAP PO PRN (16:09)
[2021-02-19] MEDS ORDERED: hydrOXYzine HCl 25 MG TAB PO PRN (16:09)
[2021-02-19] MEDS ORDERED: DO NOT ADMINISTER FLU VACCINE PRN (16:09)
[2021-02-19] MEDS ORDERED: NALOXONE HCL 0.4 MG/1 ML VIAL/CARP IV PRN (16:09)
[2021-02-19] MEDS ORDERED: ONDANSETRON 4 MG OD TAB PO PRN (16:09)
[2021-02-19] MEDS ORDERED: LORazepam 0.5 MG/1 ML VIAL IV PRN (16:09)
[2021-02-19] MEDS ORDERED: SOD PHOSPHATE/SOD BIPHOSPHATE ENEMA 132 ML BTL PR PRN (16:09)
[2021-02-19] MEDS ORDERED: ACETAMINOPHEN 1,000 MG/100 ML VIAL IV PRN (16:09)
[2021-02-19] MEDS ORDERED: LORazepam 0.5 MG TAB PO PRN (16:09)
[2021-02-19] MEDS ORDERED: FAMOTIDINE 20 MG TAB PO PRN (16:09)
[2021-02-19] MEDS: SODIUM CHLORIDE 0.9% 1000ML 1,000 ML IV SCH ×2 (16:26→23:27)
[2021-02-19] MEDS: DOCUSATE SODIUM/SENNA 50/8.6MG TAB PO SCH (21:57)
[2021-02-19] MEDS: ATORVASTATIN 40 MG TAB PO SCH (21:57)
[2021-02-19] MEDS: VANCOMYCIN HCL 1,500 MG in SODIUM CHLORIDE 0.9% 500 ML IV SCH (21:58)
[2021-02-20] MEDS: traMADol HCL 50 MG TABLET PO PRN ×2 (00:59→09:13)
[2021-02-20] MEDS: PIPERACILLIN/TAZOBACTAM 3.375 GM in DEXTROSE 5% 100 ML IV SCH (03:58)
[2021-02-20] MEDS: VANCOMYCIN HCL 1,500 MG in SODIUM CHLORIDE 0.9% 500 ML IV SCH (05:52)
[2021-02-20] MEDS: POLYETHYLENE (MIRALAX) 17 GM PACK PO SCH ×4 (05:52→22:50)
[2021-02-20 05:56] LABS: Hematocrit (blood only) 37.1 % (42-52); Hemoglobin 12.3 g/dL (14.0-18.0); Immature Granulocytes # (auto) 0.05 K/uL (0.00-0.02); Immature Granulocytes % (auto) 0.3 %; Lymphocytes # (auto) 0.95 K/uL (1.2-3.4); Lymphocytes % (auto) 5.9 %; Mean Corpuscular Hemoglobin 29.6 pg (25-34); Mean Corpuscular Hgb Conc 33.2 g/dL (32-36); Mean Corpuscular Volume 89.2 fL (80-100); Mean Platelet Volume 8.5 fL (7.4-10.4); Monocytes # (auto) 0.42 K/uL (0.11-0.59); Monocytes % (auto) 2.6 %; Neutrophils # (auto) 14.81 K/uL (1.4-6.5); Neutrophils % (auto) 91.2 %; Platelet Count 581 K/uL (130-400); RDW Coefficient of Variation 13.9 % (11.5-14.5); RDW Standard Deviation 45.9 fL (36.4-46.3); Red Blood Count 4.16 M/uL (4.7-6.1); White Blood Count 16.23 K/uL (4.8-10.8)
[2021-02-20 06:30] LABS: Albumin Level 1.9 gm/dl (3.4-5.0); BUN Creatinine Ratio 35.9 (10-20); Calcium 8.2 mg/dl (8.5-10.1); Creatinine Clr Calc Pharmacy 149.4 ml/min; Est GFR (African American) 119.7; Est GFR (Non-African American) 103.3; Potassium 4.3 mmol/L (3.5-5.1)
[2021-02-20 06:34] LABS: Albumin Globulin Ratio 0.5 (0.9-2); Bilirubin,Total 0.5 mg/dl (0.2-1); Total Protein 5.9 gm/dl (6.4-8.2)
[2021-02-20] MEDS: INSULIN ASPART 100 UNITS/ML 3 ML PEN SC SCH ×4 (09:07→22:35)
[2021-02-20] MEDS: SOTALOL HCL 80 MG TAB PO SCH ×2 (09:09→22:40)
[2021-02-20] MEDS: CHOLECALCIFEROL 1,000 UNITS 25 MCG TAB PO SCH (09:10)
[2021-02-20] MEDS: ASPIRIN 81 MG ECTAB PO SCH (09:10)
[2021-02-20] MEDS: CYANOCOBALAMIN 500 MCG TABLET (VITAMIN B-12) PO SCH (09:11)
[2021-02-20] MEDS: DOCUSATE SODIUM/SENNA 50/8.6MG TAB PO SCH (09:11)
[2021-02-20] MEDS: LIDOCAINE 5% 1 PATCH TD SCH (09:12)
[2021-02-20] MEDS: dexAMETHasone 4 MG in SYRINGE 0 ML IV SCH ×2 (09:12→22:30)
[2021-02-20] MEDS: SODIUM CHLORIDE 0.9% 1000ML 1,000 ML IV SCH ×3 (12:16→20:16)
[2021-02-20] MEDS: oxyCODONE HCL IR 5 MG TAB (IMMEDIATE RELEASE) PO PRN ×2 (12:16→20:05)
--- NOTE | 2021-02-20 12:32 | Hospitalist Progress Note ---
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 #2 exploration of fusion L4-5 L5-S1. #3 lumbar decompression with bilateral medial facetectomies and foraminotomies L2-3 L3-4. #4 posterior spinal fusion L2-3 L3-4. #5 patient posterior instrumentation L3-4 L4-5. #6 placement of infuse collagen sponge, master graft in the posterior gutters. #7 placement of stimulan beads impregnated with vancomycin gentamicin performed by Dr. Carrillo Continue pain controlled Pradaxa has been on hold, will talk to ortho to resume it Wound cx grew staph species Pt has been on Vanco and Zosyn IV, will discontinued Starting on Cefazolin IV ID on board - Waiting for input Continue monitor H/H Incentive spirometry Continue PT/OT (4) Bacteremia: Blood cx positive for staph aureus MRSA PCR negative Will change Vanco to Cefazolin Will repeat blood cx Will get an ECHO to r/o any vegetation ID consult pending (5) Atrial fibrillation, currently in sinus rhythm: Rate is controlled with sotalol Continue sotalol and other medication Has been on Pradaxa for paroxysmal atrial fibrillation Pradaxa is on hold now due to the recent surgery We will restart anticoagulation as soon as okay from Ortho (6) HTN (hypertension): Controlled now (7) Chronic anticoagulation: Continue to hold pradaxa fo now, will resume once bleeding stable as per Ortho CODE STATUS Full Admission and Anticipated Discharge Date Admission Date: February 18, 2021 Subjective Pt was seen and examined for follow up of back pain Sitting in chair with no distress Pt said that he feels sore, but he feels much better compare to yesterday He said that he works with therapy today Denies any chest pain, palpitation,dizziness and SOB Review of Systems Review of Systems: All systems reviewed & are unremarkable except as noted in Subjective Physical Exam Physical Exam: General- No acute distress Head- atraumatic Eyes- PERRL, EOMI, ENT- oropharynx clear Neck- supple, no JVD Lungs- clear to auscultation Heart- regular rhythm; no murmur Abdomen- normal bowel sounds, soft, nontender Extremities- no calf tenderness, +YULIYA drainage in back Neuro- alert, oriented x 3; PERRL, EOMI; no facial palsy; no dysarthria Skin- warm & dry Results & Data Results & Data ([facility]) Vital Signs (Past 12 Hours) Vital Signs Temp Pulse Resp BP Pulse Ox 02/20/21 08:14 37.0 C 68 16 108/70 95
[2021-02-20] MEDS: ceFAZolin 2000MG 2,000 MG/15 ML SYR IV SCH ×2 (12:53→18:01)
--- NOTE | 2021-02-20 12:58 | Orthopedic Progress Note ---
Date of Service February 20, 2021 Assessment & Plan (1) Abscess in epidural space of lumbar spine: Admission and Anticipated Discharge Date Admission Date: February 18, 2021 This time encouraged him to undergo activity as tolerated initiate physical therapy. We will monitor his YULIYA output. He most likely require PICC line placement and IV antibiotics. Subjective Back pain markedly improved. Leg pain improved. Physical Exam Physical Exam: On exam the patient is much more comfortable. Is neurologically intact. Results & Data ([facility]) Vital Signs (Past 12 Hours) Vital Signs Temp Pulse Resp BP Pulse Ox 02/20/21 08:14 37.0 C 68 16 108/70 95
[2021-02-20] MEDS ORDERED: VANCOMYCIN TROUGH ONE (13:30)
[2021-02-20] MEDS: ATORVASTATIN 40 MG TAB PO SCH (22:28)
[2021-02-21] MEDS: ceFAZolin 2000MG 2,000 MG/15 ML SYR IV SCH ×4 (01:31→18:13)
[2021-02-21] MEDS: SODIUM CHLORIDE 0.9% 1000ML 1,000 ML IV SCH (03:14)
[2021-02-21] MEDS: oxyCODONE HCL IR 5 MG TAB (IMMEDIATE RELEASE) PO PRN ×2 (03:59→09:14)
[2021-02-21] MEDS: ALUMINUM/MAGNESIUM SUSP 30 ML UDC PO PRN ×2 (04:00→12:32)
[2021-02-21] MEDS: POLYETHYLENE (MIRALAX) 17 GM PACK PO SCH (05:54)
[2021-02-21] MEDS: ONDANSETRON INJ 2 MG/ML 2 ML VIAL IV PRN ×2 (07:27→13:38)
[2021-02-21] MEDS: bisacodyL 10 MG SUPP PR PRN (08:19)
[2021-02-21] MEDS: dexAMETHasone 4 MG in SYRINGE 0 ML IV SCH ×2 (09:02→21:42)
[2021-02-21] MEDS: SOTALOL HCL 80 MG TAB PO SCH ×2 (09:03→21:39)
[2021-02-21] MEDS: PANTOprazole 40 MG TAB PO SCH (09:03)
[2021-02-21] MEDS: CHOLECALCIFEROL 1,000 UNITS 25 MCG TAB PO SCH (09:03)
[2021-02-21] MEDS: ASPIRIN 81 MG ECTAB PO SCH (09:03)
[2021-02-21] MEDS: LIDOCAINE 5% 1 PATCH TD SCH (09:04)
[2021-02-21] MEDS: INSULIN ASPART 100 UNITS/ML 3 ML PEN SC SCH ×4 (09:17→21:33)
--- NOTE | 2021-02-21 10:25 | Orthopedic Progress Note ---
Date of Service February 21, 2021 Assessment & Plan (1) Abscess in epidural space of lumbar spine: Admission and Anticipated Discharge Date Admission Date: February 18, 2021 At this time encourage him to undergo activity as tolerated. Certainly encourage him to ambulate the halls. We will wait for guidance from infectious disease. I suspect he will require a PICC line placed for IV antibiotics. Subjective Back and leg pain improved. He has been ambulating. Has not had a bowel movement yet but positive flatus. Physical Exam Physical Exam: On exam is good strength testing. Abdomen is soft. Results & Data ([facility]) Vital Signs (Past 12 Hours) Vital Signs Temp Pulse Resp BP Pulse Ox 02/21/21 07:31 37.3 C 67 16 137/68 92 02/20/21 22:35 37.2 C 93
[2021-02-21] MEDS: traMADol HCL 50 MG TABLET PO PRN (12:32)
[2021-02-21] MEDS: CALCIUM CARBONATE 500 MG CHEWABLE TAB PO PRN (16:46)
[2021-02-21] MEDS: HYDROmorphone INJ 0.5 MG/0.5 ML SYR IV PRN (20:04)
--- NOTE | 2021-02-21 20:19 | Hospitalist Progress Note ---
Date of Service February 21, 2021 Assessment & Plan (1) Intractable back pain: (2) Abscess in epidural space of lumbar spine: (3) Radiculopathy: Present on admission with back pain with radiation to right thigh and buttock area History of lumbar fusion and decompression in 2013 Increasing back pain at the surgical site for the last 2 to 3 weeks which is worse over the last week MRI was done on Thursday last results are pending S/P day #1 removal of posterior instrumentation L4-5 L5-S1. #2 exploration of fusion L4-5 L5-S1. #3 lumbar decompression with bilateral medial facetectomies and foraminotomies L2-3 L3-4. #4 posterior spinal fusion L2-3 L3-4. #5 patient posterior instrumentation L3-4 L4-5. #6 placement of infuse collagen sponge, master graft in the posterior gutters. #7 placement of stimulan beads impregnated with vancomycin gentamicin performed by Dr. Carrillo Continue pain controlled Pradaxa has been on hold, will talk to ortho to resume it Wound cx grew staph species Pt has been on Vanco and Zosyn IV, will discontinued Starting on Cefazolin IV ID on board - Waiting for input Continue monitor H/H Incentive spirometry Continue PT/OT (4) Bacteremia: Blood cx positive for staph aureus MRSA PCR negative IV Vanco changed to Cefazolin ID on on board that recommended to continue IV cefazolin for 6 to 8 weeks and adding rifampin 600mg daily once blood cx clears Rifampin may lower pradaxa level ECHO no evidence of any valvular vegetation Will repeat blood cx for the 3rd time (5) Atrial fibrillation, currently in sinus rhythm: Rate is controlled with sotalol Continue sotalol and other medication Has been on Pradaxa for paroxysmal atrial fibrillation Pradaxa is on hold now due to the recent surgery Consider to resume anticoagulation as soon as (6) HTN (hypertension): Controlled now (7) Chronic anticoagulation: Continue to hold pradaxa fo now, will resume once bleeding stable as per Ortho CODE STATUS Full Admission and Anticipated Discharge Date Admission Date: February 18, 2021 Subjective Pt was seen and examined for follow up of post op back surgery Lying in bed with no distress Pt said that pain improves He said that he is having alot of indigestion His repeat blood cx positive for gram positive cocci Denies any chest pain, palpitation, dizziness and SOB Review of Systems Review of Systems: All systems reviewed & are unremarkable except as noted in Subjective Physical Exam Physical Exam: General- No acute distress Head- atraumatic Eyes- PERRL, EOMI, ENT- oropharynx clear Neck- supple, no JVD Lungs- clear to auscultation Heart- regular rhythm; no murmur Abdomen- normal bowel sounds, soft, nontender Extremities- no calf tenderness, +YULIYA drainage in back Neuro- alert, oriented x 3; PERRL, EOMI; no facial palsy; no dysarthria Skin- warm & dry Results & Data Results & Data ([facility]) Vital Signs (Past 12 Hours) Vital Signs Temp Pulse Resp BP Pulse Ox 02/21/21 15:47 37.1 C 71 16 127/67 95
[2021-02-21] MEDS: ZOLPIDEM TARTRATE 10 MG TAB PO PRN (21:38)
[2021-02-21] MEDS: DOCUSATE SODIUM/SENNA 50/8.6MG TAB PO SCH (21:38)
[2021-02-21] MEDS: ATORVASTATIN 40 MG TAB PO SCH (21:38)
[2021-02-22] MEDS: ceFAZolin 2000MG 2,000 MG/15 ML SYR IV SCH ×3 (02:45→18:10)
[2021-02-22] MEDS: ASPIRIN 81 MG ECTAB PO SCH (08:19)
[2021-02-22] MEDS: CYANOCOBALAMIN 500 MCG TABLET (VITAMIN B-12) PO SCH (08:19)
[2021-02-22] MEDS: CHOLECALCIFEROL 1,000 UNITS 25 MCG TAB PO SCH (08:19)
[2021-02-22] MEDS: SOTALOL HCL 80 MG TAB PO SCH ×2 (08:20→20:20)
[2021-02-22] MEDS: LIDOCAINE 5% 1 PATCH TD SCH (09:03)
[2021-02-22] MEDS: INSULIN ASPART 100 UNITS/ML 3 ML PEN SC SCH ×4 (09:04→20:48)
[2021-02-22] MEDS: dexAMETHasone 4 MG in SYRINGE 0 ML IV SCH ×2 (09:05→21:41)
[2021-02-22] MEDS: HYDROmorphone INJ 0.5 MG/0.5 ML SYR IV PRN (10:36)
[2021-02-22 11:18] LABS: Hematocrit (blood only) 38.3 % (42-52); Hemoglobin 12.2 g/dL (14.0-18.0); Mean Corpuscular Hemoglobin 28.9 pg (25-34); Mean Corpuscular Hgb Conc 31.9 g/dL (32-36); Mean Corpuscular Volume 90.8 fL (80-100); Mean Platelet Volume 8.7 fL (7.4-10.4); Platelet Count 626 K/uL (130-400); RDW Coefficient of Variation 13.7 % (11.5-14.5); RDW Standard Deviation 45.5 fL (36.4-46.3); Red Blood Count 4.22 M/uL (4.7-6.1)
[2021-02-22 11:51] LABS: BUN Creatinine Ratio 33.2 (10-20); Calcium 8.6 mg/dl (8.5-10.1); Creatinine Clr Calc Pharmacy 127.4 ml/min; Est GFR (African American) 112.1; Est GFR (Non-African American) 96.8; Potassium 4.2 mmol/L (3.5-5.1)
--- NOTE | 2021-02-22 12:08 | Orthopedic Progress Note ---
Date of Service February 22, 2021 Assessment & Plan (1) Abscess in epidural space of lumbar spine: Admission and Anticipated Discharge Date Admission Date: February 18, 2021 At this time he is progressing appropriately from orthopedic standpoint. We are waiting final conditions from infectious disease. From orthopedic standpoint he be stable to return home as soon as tomorrow. Subjective Patient's back pain and leg pain are markedly improved. He was able to ambulate well yesterday. His bowels are working well. Physical Exam Physical Exam: Patient is neurologically intact to testing. Results & Data ([facility]) Vital Signs (Past 12 Hours) Vital Signs Temp Pulse Pulse Resp BP Pulse Ox 02/22/21 08:22 60 02/22/21 06:52 36.7 C 56 L 16 105/62 94
[2021-02-22] MEDS: CALCIUM CARBONATE 500 MG CHEWABLE TAB PO PRN (15:16)
[2021-02-22] MEDS: traMADol HCL 50 MG TABLET PO PRN ×2 (15:16→21:46)
--- NOTE | 2021-02-22 17:25 | Hospitalist Progress Note ---
Date of Service February 22, 2021 Assessment & Plan (1) Intractable back pain: (2) Abscess in epidural space of lumbar spine: (3) Radiculopathy: Present on admission with back pain with radiation to right thigh and buttock area History of lumbar fusion and decompression in 2013 Increasing back pain at the surgical site for the last 2 to 3 weeks which is worse over the last week MRI was done on Thursday last results are pending S/P day #1 removal of posterior instrumentation L4-5 L5-S1. #2 exploration of fusion L4-5 L5-S1. #3 lumbar decompression with bilateral medial facetectomies and foraminotomies L2-3 L3-4. #4 posterior spinal fusion L2-3 L3-4. #5 patient posterior instrumentation L3-4 L4-5. #6 placement of infuse collagen sponge, master graft in the posterior gutters. #7 placement of stimulan beads impregnated with vancomycin gentamicin performed by Dr. Carrillo Continue pain controlled Pradaxa has been on hold, ok from ortho standpoint to resume Pradaxa since bleeding stable Wound cx grew staph species IV Vanco and Zosyn discontinued ID on board Continue IV Cefazolin for 6 to 8 weeks as per ID Continue monitor H/H Incentive spirometry Continue PT/OT (4) Bacteremia: Blood cx positive for staph aureus MRSA PCR negative IV Vanco changed to Cefazolin ID on on board that recommended to continue IV cefazolin for 6 to 8 weeks and adding rifampin 600mg daily once blood cx clears Rifampin may lower pradaxa level ECHO no evidence of any valvular vegetation Repeat blood cx on 02/21 - pending Will place a PICC line once blood cx negative (5) Atrial fibrillation, currently in sinus rhythm: Rate is controlled with sotalol Continue sotalol and other medication Has been on Pradaxa for paroxysmal atrial fibrillation Pradaxa is on hold now due to the recent surgery Will resume Pradaxa today (6) HTN (hypertension): Controlled now (7) Chronic anticoagulation: Continue to hold pradaxa fo now, will resume once bleeding stable as per Ortho CODE STATUS Full Admission and Anticipated Discharge Date Admission Date: February 18, 2021 Subjective Pt was seen and examined for post op back follow up Lying in bed with no distress Pt said that he feels much better today He said that he walked with therapist today He continues to have some tenderness in his back Denies any chest pain, palpitation, dizziness and SOB Review of Systems Review of Systems: All systems reviewed & are unremarkable except as noted in Subjective Physical Exam Physical Exam: General- No acute distress Head- atraumatic Eyes- PERRL, EOMI, ENT- oropharynx clear Neck- supple, no JVD Lungs- clear to auscultation Heart- regular rhythm; no murmur Abdomen- normal bowel sounds, soft, nontender Extremities- no calf tenderness, +YULIYA drainage in back Neuro- alert, oriented x 3; PERRL, EOMI; no facial palsy; no dysarthria Skin- warm & dry Results & Data Results & Data ([facility]) Vital Signs (Past 12 Hours) Vital Signs Temp Pulse Pulse Pulse Resp BP Pulse Ox 02/22/21 15:02 37.2 C 61 17 106/53 L 97 02/22/21 08:22 60 02/22/21 06:52 36.7 C 56 L 16 105/62 94
[2021-02-22] MEDS: oxyCODONE HCL IR 5 MG TAB (IMMEDIATE RELEASE) PO PRN (20:18)
[2021-02-22] MEDS: DABIGATRAN ETEXILATE 75 MG CAP PO SCH (20:19)
[2021-02-22] MEDS: ATORVASTATIN 40 MG TAB PO SCH (20:22)
[2021-02-22] MEDS: DOCUSATE SODIUM/SENNA 50/8.6MG TAB PO SCH (20:22)
[2021-02-22] MEDS: ZOLPIDEM TARTRATE 10 MG TAB PO PRN (23:05)
[2021-02-23] MEDS: ceFAZolin 2000MG 2,000 MG/15 ML SYR IV SCH ×3 (02:00→17:56)
[2021-02-23 07:30] LABS: Hematocrit (blood only) 37.2 % (42-52); Hemoglobin 12.1 g/dL (14.0-18.0); Mean Corpuscular Hemoglobin 28.9 pg (25-34); Mean Corpuscular Hgb Conc 32.5 g/dL (32-36); Mean Corpuscular Volume 88.8 fL (80-100); Mean Platelet Volume 8.9 fL (7.4-10.4); Platelet Count 551 K/uL (130-400); RDW Coefficient of Variation 13.6 % (11.5-14.5); Red Blood Count 4.19 M/uL (4.7-6.1); White Blood Count 12.53 K/uL (4.8-10.8)
[2021-02-23] MEDS: HYDROmorphone INJ 0.5 MG/0.5 ML SYR IV PRN ×4 (08:13→22:05)
--- NOTE | 2021-02-23 08:28 | Orthopedic Progress Note ---
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 We will continue to maintain his drain at this point. He will stay on GI and DVT prophylaxis as well. He is now considering possibilities of going to rehab facility postoperative. We will continue to follow. Admission and Anticipated Discharge Date Admission Date: February 18, 2021 Subjective Patient was seen bedside in room 379. He is postop day over 4. He is currently on IV antibiotics and being followed by medicine and infectious disease. He states that he is having issues with his right ulnar nerve as he had an ulnar nerve transposition late last year. He has incisional pain but no radicular complaints at this point. He denies any other numbness, tingling, or paresthesias. Physical Exam Physical Exam: On exam he is alert and oriented. His dressing is clean dry and intact his YULIYA drain is in place and holding suction. It is placed out 65 cc in 24 hours. His strength and sensation are both intact his calves are supple nontender his abdomen supple and nontender. Results & Data ([facility]) Vital Signs (Past 12 Hours) Vital Signs Temp Pulse Resp BP Pulse Ox 02/23/21 07:29 36.6 C 57 L 16 102/61 92 02/22/21 23:50 95/55 L 02/22/21 23:14 36.5 C 64 16 91/54 L 92
[2021-02-23] MEDS: ASPIRIN 81 MG ECTAB PO SCH (08:31)
[2021-02-23] MEDS: PANTOprazole 40 MG TAB PO SCH (08:31)
[2021-02-23] MEDS: CHOLECALCIFEROL 1,000 UNITS 25 MCG TAB PO SCH (08:32)
[2021-02-23] MEDS: SOTALOL HCL 80 MG TAB PO SCH ×2 (08:32→20:44)
[2021-02-23] MEDS: DABIGATRAN ETEXILATE 75 MG CAP PO SCH ×2 (08:33→20:45)
[2021-02-23] MEDS: INSULIN ASPART 100 UNITS/ML 3 ML PEN SC SCH ×4 (08:41→21:28)
[2021-02-23] MEDS: LIDOCAINE 5% 1 PATCH TD SCH (11:28)
[2021-02-23] MEDS: dexAMETHasone 4 MG in SYRINGE 0 ML IV SCH ×2 (11:30→22:05)
--- NOTE | 2021-02-23 19:04 | Hospitalist Progress Note ---
Date of Service February 23, 2021 Assessment & Plan (1) Intractable back pain: (2) Abscess in epidural space of lumbar spine: (3) Radiculopathy: Present on admission with back pain with radiation to right thigh and buttock area History of lumbar fusion and decompression in 2013 Increasing back pain at the surgical site for the last 2 to 3 weeks which is worse over the last week MRI was done on Thursday last results are pending S/P day #1 removal of posterior instrumentation L4-5 L5-S1. #2 exploration of fusion L4-5 L5-S1. #3 lumbar decompression with bilateral medial facetectomies and foraminotomies L2-3 L3-4. #4 posterior spinal fusion L2-3 L3-4. #5 patient posterior instrumentation L3-4 L4-5. #6 placement of infuse collagen sponge, master graft in the posterior gutters. #7 placement of stimulan beads impregnated with vancomycin gentamicin performed by Dr. Carrillo Continue pain controlled Pradaxa has been on hold, ok from ortho standpoint to resume Pradaxa since bleeding stable Wound cx grew staph species IV Vanco and Zosyn discontinued ID on board Continue IV Cefazolin for 6 to 8 weeks as per ID Continue monitor H/H Incentive spirometry Continue PT/OT (4) Bacteremia: Blood cx positive for staph aureus MRSA PCR negative IV Vanco changed to Cefazolin ID on on board that recommended to continue IV cefazolin for 6 to 8 weeks and adding rifampin 600mg daily once blood cx clears Rifampin may lower pradaxa level ECHO no evidence of any valvular vegetation Repeat blood cx on 02/21 - no growth so far Will place a PICC line once blood cx negative (5) Atrial fibrillation, currently in sinus rhythm: Rate is controlled with sotalol Continue sotalol and other medication Has been on Pradaxa for paroxysmal atrial fibrillation Pradaxa is on hold now due to the recent surgery Will resume Pradaxa today (6) HTN (hypertension): Controlled now (7) Chronic anticoagulation: Continue to hold pradaxa fo now, will resume once bleeding stable as per Ortho CODE STATUS Full Admission and Anticipated Discharge Date Admission Date: February 18, 2021 Subjective Pt was seen and examined for post op back follow up Lying in bed with no distress Patient said that he feels sore today. He said that he was working with therapy today and did a couple laps in the hallway Denies any chest pain, palpitation, dizziness and SOB Review of Systems Review of Systems: All systems reviewed & are unremarkable except as noted in Subjective Physical Exam Physical Exam: General- No acute distress Head- atraumatic Eyes- PERRL, EOMI, ENT- oropharynx clear Neck- supple, no JVD Lungs- clear to auscultation Heart- regular rhythm; no murmur Abdomen- normal bowel sounds, soft, nontender Extremities- no calf tenderness, +YULIYA drainage in back Neuro- alert, oriented x 3; PERRL, EOMI; no facial palsy; no dysarthria Skin- warm & dry Results & Data Results & Data ([facility]) Vital Signs (Past 12 Hours) Vital Signs Temp Pulse Pulse Resp BP Pulse Ox 02/23/21 16:22 36.5 C 63 16 94/50 L 94 02/23/21 07:29 36.6 C 57 L 16 102/61 92
[2021-02-23] MEDS: DOCUSATE SODIUM/SENNA 50/8.6MG TAB PO SCH (20:45)
[2021-02-23] MEDS: ATORVASTATIN 40 MG TAB PO SCH (20:45)
[2021-02-23] MEDS: ZOLPIDEM TARTRATE 10 MG TAB PO PRN (23:01)
[2021-02-24] MEDS: ceFAZolin 2000MG 2,000 MG/15 ML SYR IV SCH ×3 (03:03→17:57)
[2021-02-24] MEDS: HYDROmorphone INJ 0.5 MG/0.5 ML SYR IV PRN ×3 (07:34→19:44)
--- NOTE | 2021-02-24 08:14 | Orthopedic Progress Note ---
Date of Service February 24, 2021 Assessment & Plan (1) Abscess in epidural space of lumbar spine: Patient is stable at this point his pain is improving. He has been afebrile and his vital signs have remained stable. We will continue with PT and mobilization efforts. Orthopedically he is stable but we are awaiting placement. We will continue to follow. Admission and Anticipated Discharge Date Admission Date: February 18, 2021 Subjective Patient is seen bedside in room 379 he states his pain is better today. He did better yesterday walking. He has less pain in the right arm today. He has no new complaints. Physical Exam Physical Exam: On exam he is alert and oriented. His lower extremity motor ex am reveals full strength. Sensation is intact to light touch. His abdomen soft nontender his calves are supple nontender. His dressing is clean dry and intact and his drain is placed 5 cc out on the shift 0 on the previous. Results & Data ([facility]) Vital Signs (Past 12 Hours) Vital Signs Temp Pulse Resp BP Pulse Ox 02/24/21 07:22 37.2 C 53 L 16 104/63 93 02/23/21 23:29 37.2 C 58 L 16 94/58 L 93
[2021-02-24] MEDS: CYANOCOBALAMIN 500 MCG TABLET (VITAMIN B-12) PO SCH (09:43)
[2021-02-24] MEDS: oxyCODONE HCL IR 5 MG TAB (IMMEDIATE RELEASE) PO PRN ×2 (09:43→16:55)
[2021-02-24] MEDS: LIDOCAINE 5% 1 PATCH TD SCH (09:44)
[2021-02-24] MEDS: SOTALOL HCL 80 MG TAB PO SCH ×2 (09:44→21:15)
[2021-02-24] MEDS: CHOLECALCIFEROL 1,000 UNITS 25 MCG TAB PO SCH (09:44)
[2021-02-24] MEDS: DABIGATRAN ETEXILATE 75 MG CAP PO SCH ×2 (09:44→21:16)
[2021-02-24] MEDS: ASPIRIN 81 MG ECTAB PO SCH (09:44)
[2021-02-24] MEDS: dexAMETHasone 4 MG in SYRINGE 0 ML IV SCH ×2 (09:47→22:02)
[2021-02-24] MEDS: INSULIN ASPART 100 UNITS/ML 3 ML PEN SC SCH ×4 (09:50→21:57)
--- NOTE | 2021-02-24 12:39 | Hospitalist Progress Note ---
Date of Service February 24, 2021 Assessment & Plan (1) Intractable back pain: (2) Abscess in epidural space of lumbar spine: (3) Radiculopathy: Present on admission with back pain with radiation to right thigh and buttock area History of lumbar fusion and decompression in 2013 Increasing back pain at the surgical site for the last 2 to 3 weeks which is worse over the last week MRI was done on Thursday last results are pending S/P day #1 removal of posterior instrumentation L4-5 L5-S1. #2 exploration of fusion L4-5 L5-S1. #3 lumbar decompression with bilateral medial facetectomies and foraminotomies L2-3 L3-4. #4 posterior spinal fusion L2-3 L3-4. #5 patient posterior instrumentation L3-4 L4-5. #6 placement of infuse collagen sponge, master graft in the posterior gutters. #7 placement of stimulan beads impregnated with vancomycin gentamicin performed by Dr. Carrillo Continue pain controlled Pradaxa has been on hold, ok from ortho standpoint to resume Pradaxa since bleeding stable Wound cx grew staph species IV Vanco and Zosyn discontinued ID on board Continue IV Cefazolin for 6 to 8 weeks as per ID Continue monitor H/H Incentive spirometry Continue PT/OT (4) Bacteremia: Blood cx positive for staph aureus MRSA PCR negative IV Vanco changed to Cefazolin ID on on board that recommended to continue IV cefazolin for 6 to 8 weeks and adding rifampin 600mg daily once blood cx clears Rifampin may lower pradaxa level ECHO no evidence of any valvular vegetation Repeat blood cx on 02/21 - no growth so far Will place a PICC line tomorrow if blood cx remains negative (5) Atrial fibrillation, currently in sinus rhythm: Rate is controlled with sotalol Continue sotalol and other medication Has been on Pradaxa for paroxysmal atrial fibrillation Pradaxa is on hold now due to the recent surgery Will resume Pradaxa today (6) HTN (hypertension): Controlled now (7) Chronic anticoagulation: Continue to hold pradaxa fo now, will resume once bleeding stable as per Ortho CODE STATUS Full Admission and Anticipated Discharge Date Admission Date: February 18, 2021 Subjective Pt was seen and examined for post op back follow up Lying in bed with no distress Pt said that he feels much better Denies any chest pain, palpitation, dizziness and SOB Review of Systems Review of Systems: All systems reviewed & are unremarkable except as noted in Subjective Physical Exam Physical Exam: General- No acute distress Head- atraumatic Eyes- PERRL, EOMI, ENT- oropharynx clear Neck- supple, no JVD Lungs- clear to auscultation Heart- regular rhythm; no murmur Abdomen- normal bowel sounds, soft, nontender Extremities- no calf tenderness, +YULIYA drainage in back Neuro- alert, oriented x 3; PERRL, EOMI; no facial palsy; no dysarthria Skin- warm & dry Results & Data Results & Data ([facility]) Vital Signs (Past 12 Hours) Vital Signs Temp Pulse Resp BP Pulse Ox 02/24/21 07:22 37.2 C 53 L 16 104/63 93
[2021-02-24] MEDS: DOCUSATE SODIUM/SENNA 50/8.6MG TAB PO SCH (21:15)
[2021-02-24] MEDS: ATORVASTATIN 40 MG TAB PO SCH (21:16)
[2021-02-24] MEDS: HYDROmorphone INJ 1 MG/ML SYRINGE IV PRN (23:31)
[2021-02-25] MEDS: ZOLPIDEM TARTRATE 10 MG TAB PO PRN (00:12)
[2021-02-25] MEDS: ceFAZolin 2000MG 2,000 MG/15 ML SYR IV SCH ×3 (02:29→18:03)
[2021-02-25] MEDS: HYDROmorphone INJ 1 MG/ML SYRINGE IV PRN ×4 (07:23→22:34)
[2021-02-25] MEDS: INSULIN ASPART 100 UNITS/ML 3 ML PEN SC SCH ×4 (07:47→23:05)
[2021-02-25] MEDS: CHOLECALCIFEROL 1,000 UNITS 25 MCG TAB PO SCH (08:02)
[2021-02-25] MEDS: ASPIRIN 81 MG ECTAB PO SCH (08:02)
[2021-02-25] MEDS: LIDOCAINE 5% 1 PATCH TD SCH (08:03)
[2021-02-25] MEDS: PANTOprazole 40 MG TAB PO SCH (08:03)
[2021-02-25] MEDS: SOTALOL HCL 80 MG TAB PO SCH ×2 (08:03→22:40)
[2021-02-25] MEDS: dexAMETHasone 4 MG in SYRINGE 0 ML IV SCH ×2 (08:03→22:42)
[2021-02-25] MEDS: DABIGATRAN ETEXILATE 75 MG CAP PO SCH ×2 (08:03→22:41)
[2021-02-25 09:29] LABS: Hematocrit (blood only) 39.8 % (42-52); Hemoglobin 12.8 g/dL (14.0-18.0); Mean Corpuscular Hgb Conc 32.2 g/dL (32-36); Mean Corpuscular Volume 90.2 fL (80-100); Mean Platelet Volume 8.9 fL (7.4-10.4); Platelet Count 741 K/uL (130-400); RDW Coefficient of Variation 13.6 % (11.5-14.5); RDW Standard Deviation 44.7 fL (36.4-46.3); Red Blood Count 4.41 M/uL (4.7-6.1); White Blood Count 14.48 K/uL (4.8-10.8)
[2021-02-25 09:55] LABS: BUN Creatinine Ratio 29.7 (10-20); Calcium 9.3 mg/dl (8.5-10.1); Est GFR (African American) 107.1; Est GFR (Non-African American) 92.4; Potassium 3.9 mmol/L (3.5-5.1)
--- NOTE | 2021-02-25 11:54 | Orthopedic Progress Note ---
Date of Service February 25, 2021 Assessment & Plan (1) Abscess in epidural space of lumbar spine: Awaiting PICC placement. Continue with IV Ancef per [facility] infectious disease recommendations. We will DC YULIYA drain today. Continue with physical therapy. Continue with pain control. Orthopedically stable for discharge at this point. Admission and Anticipated Discharge Date Admission Date: February 18, 2021 Supervising Physician Co-Signing Physician Notes Dr. Satnam Carrillo Subjective Patient is status post revision lumbar decompression fusion with subsequent infection. He is still awaiting his PICC line. Currently on IV Ancef. YULIYA drain output last shift is 20 cc. Yesterday in physical therapy ambling 140 feet. Leg symptoms improved compared to preoperative status. Currently pursuing [facility] acute rehab upon discharge. Review of Systems Review of Systems: All systems reviewed & are unremarkable except as noted in HPI & below Physical Exam Physical Exam: He is lying in bed in no acute distress alert and oriented x3 lumbar dressing is clean dry and intact with functioning YULIYA drain Motor testing is 5 5 bilateral lower extremities Calf soft nontender bilaterally. Constitutional: WD/WN, vitals as above Eyes: normal visual carpio by confrontation ENMT: external ear and nose normal, oropharynx normal Neck: normal visual inspection Respiratory: normal respiratory effort Cardiovascular: Extremities: normal capillary refill Chest (Breasts): Chest: normal inspection of chest Gastrointestinal (Abdomen): Inspection/Auscultation: abdomen normal to inspection Musculoskeletal: no cyanosis or clubbing, extremities motor strength 5/5 Neurologic: normal touch/pain/proprioception and moves all extremities Psychiatric: A+Ox3, euthymic affect Results & Data ([facility]) Vital Signs (Past 12 Hours) Vital Signs Temp Pulse Resp BP Pulse Ox 02/25/21 06:44 36.7 C 54 L 17 105/63 93
[2021-02-25] MEDS: HYDROmorphone INJ 0.5 MG/0.5 ML SYR IV PRN (13:54)
--- NOTE | 2021-02-25 17:31 | Hospitalist Progress Note ---
Date of Service February 25, 2021 Assessment & Plan (1) Intractable back pain: (2) Abscess in epidural space of lumbar spine: (3) Radiculopathy: Present on admission with back pain with radiation to right thigh and buttock area History of lumbar fusion and decompression in 2013 Increasing back pain at the surgical site for the last 2 to 3 weeks which is worse over the last week MRI was done on Thursday last results are pending S/P removal of posterior instrumentation L4-5 L5-S1. #2 exploration of fusion L4-5 L5-S1. #3 lumbar decompression with bilateral medial facetectomies and foraminotomies L2-3 L3-4. #4 posterior spinal fusion L2-3 L3-4. #5 patient posterior instrumentation L3-4 L4-5. #6 placement of infuse collagen sponge, master graft in the posterior gutters. #7 placement of stimulan beads impregnated with vancomycin gentamicin performed by Dr. Carrillo Continue pain controlled Pradaxa has been on hold, ok from ortho standpoint to resume Pradaxa since bleeding stable Wound cx grew staph species IV Vanco and Zosyn discontinued ID on board Continue IV Cefazolin for 6 to 8 weeks as per ID Continue monitor H/H Incentive spirometry Continue PT/OT Ok from ortho standpoint to discharge home Waiting for placement to rehab (4) Bacteremia: Possible sepsis due to MSSA Blood cx positive for staph aureus MRSA PCR negative IV Vanco changed to Cefazolin ID on on board that recommended to continue IV cefazolin for 6 to 8 weeks and adding rifampin 600mg daily once blood cx clears Rifampin may lower pradaxa level ECHO no evidence of any valvular vegetation Repeat blood cx on 02/21 - no growth so far Will place a PICC line today if blood cx remains negative (5) Atrial fibrillation, currently in sinus rhythm: Rate is controlled with sotalol Continue sotalol and other medication Has been on Pradaxa for paroxysmal atrial fibrillation Pradaxa is on hold now due to the recent surgery Pradaxa resumed (6) HTN (hypertension): Controlled now (7) Chronic anticoagulation: Continue to hold pradaxa fo now, will resume once bleeding stable as per Ortho CODE STATUS Full Admission and Anticipated Discharge Date Admission Date: February 18, 2021 Subjective Pt was seen and examined for post op back follow up Sitting at the egde of the bed eating lunch Pt said that he feels much better today He said that he was able to get up by himself during his therapy Denies any chest pain, palpitation, dizziness and SOB Review of Systems Review of Systems: All systems reviewed & are unremarkable except as noted in Subjective Physical Exam Physical Exam: General- No acute distress Head- atraumatic Eyes- PERRL, EOMI, ENT- oropharynx clear Neck- supple, no JVD Lungs- clear to auscultation Heart- regular rhythm; no murmur Abdomen- normal bowel sounds, soft, nontender Extremities- no calf tenderness, +YULIYA drainage in back Neuro- alert, oriented x 3; PERRL, EOMI; no facial palsy; no dysarthria Skin- warm & dry Results & Data Results & Data ([facility]) Vital Signs (Past 12 Hours) Vital Signs Temp Pulse Pulse Resp BP BP Pulse Ox 02/25/21 15:34 36.5 C 54 L 18 107/68 93 02/25/21 06:44 36.7 C 54 L 17 105/63 93
[2021-02-25] MEDS: traMADol HCL 50 MG TABLET PO PRN (22:34)
[2021-02-25] MEDS: ATORVASTATIN 40 MG TAB PO SCH (22:40)
[2021-02-25] MEDS: DOCUSATE SODIUM/SENNA 50/8.6MG TAB PO SCH (22:42)
[2021-02-26] MEDS: ceFAZolin 2000MG 2,000 MG/15 ML SYR IV SCH ×3 (01:37→18:28)
[2021-02-26] MEDS: ZOLPIDEM TARTRATE 10 MG TAB PO PRN (01:37)
[2021-02-26] MEDS: traMADol HCL 50 MG TABLET PO PRN ×2 (06:08→11:05)
[2021-02-26] MEDS: HYDROmorphone INJ 1 MG/ML SYRINGE IV PRN (06:08)
[2021-02-26] MEDS: DABIGATRAN ETEXILATE 75 MG CAP PO SCH ×2 (07:34→20:10)
[2021-02-26] MEDS: CHOLECALCIFEROL 1,000 UNITS 25 MCG TAB PO SCH (07:35)
[2021-02-26] MEDS: SOTALOL HCL 80 MG TAB PO SCH ×2 (07:35→20:12)
[2021-02-26] MEDS: CYANOCOBALAMIN 500 MCG TABLET (VITAMIN B-12) PO SCH (07:35)
[2021-02-26] MEDS: LIDOCAINE 5% 1 PATCH TD SCH (07:36)
[2021-02-26] MEDS: ASPIRIN 81 MG ECTAB PO SCH (07:36)
[2021-02-26] MEDS: INSULIN ASPART 100 UNITS/ML 3 ML PEN SC SCH ×4 (07:39→20:40)
[2021-02-26] MEDS: bisacodyL 10 MG SUPP PR PRN (08:01)
[2021-02-26] MEDS: dexAMETHasone 4 MG in SYRINGE 0 ML IV SCH (10:14)
[2021-02-26] MEDS: oxyCODONE HCL IR 5 MG TAB (IMMEDIATE RELEASE) PO PRN ×3 (12:41→23:07)
[2021-02-26] MEDS: HYDROmorphone INJ 0.5 MG/0.5 ML SYR IV PRN (14:21)
--- NOTE | 2021-02-26 18:51 | Hospitalist Progress Note ---
Date of Service February 26, 2021 Assessment & Plan (1) Intractable back pain: (2) Abscess in epidural space of lumbar spine: (3) Radiculopathy: Present on admission with back pain with radiation to right thigh and buttock area History of lumbar fusion and decompression in 2012 Increasing back pain at the surgical site for the last 2 to 3 weeks which is worse over the last week MRI was done on Thursday last results are pending S/P removal of posterior instrumentation L4-5 L5-S1. #2 exploration of fusion L4-5 L5-S1. #3 lumbar decompression with bilateral medial facetectomies and foraminotomies L2-3 L3-4. #4 posterior spinal fusion L2-3 L3-4. #5 patient posterior instrumentation L3-4 L4-5. #6 placement of infuse collagen sponge, master graft in the posterior gutters. #7 placement of stimulan beads impregnated with vancomycin gentamicin performed by Dr. Carrillo on 02/19/21 Continue pain controlled Pradaxa has been on hold, ok from ortho standpoint to resume Pradaxa since bleeding stable Wound cx grew staph species IV Vanco and Zosyn discontinued ID on board Continue IV Cefazolin for 6 to 8 weeks as per ID Continue monitor H/H Incentive spirometry Continue PT/OT Ok from ortho standpoint to discharge home Peer to peer done today and insurance declined for inpatient rehab, but ok with SNF family plans to appeal the decision as per major case detective (4) Bacteremia: Possible sepsis due to MSSA Blood cx positive for staph aureus MRSA PCR negative IV Vanco changed to Cefazolin ID on on board that recommended to continue IV cefazolin for 6 to 8 weeks and adding rifampin 600mg daily once blood cx clears Pt may need fpc course of abx for suppression Rifampin may lower pradaxa level ECHO no evidence of any valvular vegetation Repeat blood cx on 02/21 negative PICC line placed yesterday Will need to continue IV Cefazolin Will add Rifampin 600mg daily as per ortho Will need to follow with ID outpatient (5) Atrial fibrillation, currently in sinus rhythm: Rate is controlled with sotalol Continue sotalol and other medication Has been on Pradaxa for paroxysmal atrial fibrillation Pradaxa is on hold now due to the recent surgery Pradaxa resumed We might consider to change the pradaxa to another anticoagulant due to drug interaction with the rifampin. spoke to pharmacy and they are looking for alternative Pharmacy recommended Lovenox therapeutic dose while on the Rifampin. Discussed that with the pt and agreed with the transition while on the Rifampin (6) HTN (hypertension): Controlled now (7) Chronic anticoagulation: Continue to hold pradaxa fo now, will resume once bleeding stable as per Ortho CODE STATUS Full Disposition Waiting for placement, but if denies, pt will go home with HH Admission and Anticipated Discharge Date Admission Date: February 18, 2021 Subjective Pt was seen and examined for post op back follow up Lying in bed with no distress Pt said that he feels much better He said that he is moving around better Insurance denies inpatient rehab Peer to peer review done and the insurance physician did not approve rehab, but ok with SNF Pt does not want to go to SNF. is planning to appeal the decision Denies any chest pain, palpitation, dizziness and SOB Review of Systems Review of Systems: All systems reviewed & are unremarkable except as noted in Subjective Physical Exam Physical Exam: General- No acute distress Head- atraumatic Eyes- PERRL, EOMI, ENT- oropharynx clear Neck- supple, no JVD Lungs- clear to auscultation Heart- regular rhythm; no murmur Abdomen- normal bowel sounds, soft, nontender Extremities- no calf tenderness, +YULIYA drainage in back Neuro- alert, oriented x 3; PERRL, EOMI; no facial palsy; no dysarthria Skin- warm & dry Results & Data Results & Data ([facility]) Vital Signs (Past 12 Hours) Vital Signs Temp Pulse Resp BP Pulse Ox 02/26/21 15:28 36.5 C 61 18 114/75 94
[2021-02-26] MEDS: ATORVASTATIN 40 MG TAB PO SCH (20:10)
[2021-02-26] MEDS: DOCUSATE SODIUM/SENNA 50/8.6MG TAB PO SCH (20:12)
[2021-02-27] MEDS: ZOLPIDEM TARTRATE 10 MG TAB PO PRN ×2 (00:08→23:28)
[2021-02-27] MEDS: ceFAZolin 2000MG 2,000 MG/15 ML SYR IV SCH ×3 (02:39→23:28)
[2021-02-27 05:53] LABS: Hematocrit (blood only) 35.6 % (42-52); Hemoglobin 11.4 g/dL (14.0-18.0); Mean Corpuscular Hemoglobin 28.7 pg (25-34); Mean Corpuscular Volume 89.7 fL (80-100); Mean Platelet Volume 8.8 fL (7.4-10.4); Platelet Count 510 K/uL (130-400); RDW Coefficient of Variation 13.9 % (11.5-14.5); Red Blood Count 3.97 M/uL (4.7-6.1); White Blood Count 10.45 K/uL (4.8-10.8)
[2021-02-27] MEDS: oxyCODONE HCL IR 5 MG TAB (IMMEDIATE RELEASE) PO PRN ×3 (06:11→21:51)
[2021-02-27 06:30] LABS: BUN Creatinine Ratio 38.7 (10-20); Calcium 8.2 mg/dl (8.5-10.1); Creatinine Clr Calc Pharmacy 131.3 ml/min; Est GFR (African American) 113.5; Potassium 3.8 mmol/L (3.5-5.1)
[2021-02-27] MEDS: INSULIN ASPART 100 UNITS/ML 3 ML PEN SC SCH ×4 (07:49→21:38)
[2021-02-27] MEDS: CHOLECALCIFEROL 1,000 UNITS 25 MCG TAB PO SCH (07:50)
[2021-02-27] MEDS: PANTOprazole 40 MG TAB PO SCH (07:50)
[2021-02-27] MEDS: SOTALOL HCL 80 MG TAB PO SCH ×3 (07:51→21:17)
[2021-02-27] MEDS: LIDOCAINE 5% 1 PATCH TD SCH (07:51)
[2021-02-27] MEDS: ASPIRIN 81 MG ECTAB PO SCH (07:52)
[2021-02-27] MEDS: traMADol HCL 50 MG TABLET PO PRN (08:02)
[2021-02-27] MEDS: ENOXAPARIN 100 MG/1ML SYR SQ SCH ×2 (08:03→21:18)
--- NOTE | 2021-02-27 08:40 | Hospitalist Progress Note ---
Date of Service February 27, 2021 Assessment & Plan (1) Intractable back pain: History of lumbar fusion and decompression in 2013 Increasing back pain at the surgical site for the last 2 to 3 weeks which is worse over the last week MRI was done as outpt Presented to ER with intractable pain localized with minimal radiation Received pain medications and steroid on admission Orthopedic surgery consulted. discussed with Dr. Carrillo Due to the acuity of the symptoms the patient was taken to OR Holding any further Pradaxa d/t surgery Status post lumbar surgery as documented below Back pain is much improved (2) Abscess in epidural space of lumbar spine: MSSA bacteremia Has lumbar epidural abscess L3-L4 and infected facet cyst L3-L4 on the right Status post: Removal of posterior instrumentation L4-5 and L5-S1 Exploration of fusion L4-5 L5-S1 Lumbar decompression with bilateral medial vasectomies and foraminotomies Posterior spinal fusion L2-3 and L3-L4 next posterior instrumentation Placement of infusion collagen sponge next placement of stimulant beads impregnated with vancomycin and gentamicin Management as per Ortho Blood cultures are positive for gram-positive cocci in clusters-await sensitivity Wound culture Gram stain showed gram-positive cocci, sensitivity is pending but it did not show any MRSA Has been placed on intravenous vancomycin and Zosyn, further management below Will monitor CBC and CMP (3) Radiculopathy: Present on admission with back pain with radiation to right thigh and buttock area History of lumbar fusion and decompression in 2013 Increasing back pain at the surgical site for the last 2 to 3 weeks which is worse over the last week MRI was done on Thursday last results are pending S/P removal of posterior instrumentation L4-5 L5-S1. #2 exploration of fusion L4-5 L5-S1. #3 lumbar decompression with bilateral medial facetectomies and foraminotomies L2-3 L3-4. #4 posterior spinal fusion L2-3 L3-4. #5 patient posterior instrumentation L3-4 L4-5. #6 placement of infuse collagen sponge, master graft in the posterior gutters. #7 placement of stimulan beads impr egnated with vancomycin gentamicin performed by Dr. Carrillo on 02/19/21 Continue pain controlled Pradaxa has been on hold, ok from ortho standpoint to resume Pradaxa since bleeding stable Wound cx grew staph species IV Vanco and Zosyn discontinued ID consulted Continue IV Cefazolin for 6 to 8 weeks as per ID Continue monitor H/H Incentive spirometry Continue PT/OT Ok from ortho standpoint to discharge home Peer to peer done today and insurance declined for inpatient rehab, but ok with SNF Plan to DC home w/ family and HH (4) Bacteremia: Possible sepsis due to MSSA Blood cx positive for staph aureus MRSA PCR negative IV Vanco changed to Cefazolin ID on on board that recommended to continue IV cefazolin for 6 to 8 weeks and adding rifampin 600mg daily once blood cx clears Pt may need long-term course of abx for suppression Rifampin may lower pradaxa level - discussed with pharmacy - pt started on lovenox 100 bid, pradaxa stopped ECHO no evidence of any valvular vegetation Repeat blood cx on 02/21 negative PICC line placed Will need to continue IV Cefazolin Will add Rifampin 600mg daily as per ortho Will need to follow with ID outpatient (5) Atrial fibrillation, currently in sinus rhythm: Rate is controlled with sotalol Continue sotalol and other medication Has been on Pradaxa for paroxysmal atrial fibrillation Pradaxa on hold due to the recent surgery Pradaxa resumed We might consider to change the pradaxa to another anticoagulant due to drug interaction with the rifampin. spoke to pharmacy and they are looking for alternative Pharmacy recommended Lovenox therapeutic dose while on the Rifampin. Discussed that with the pt and agreed with the transition while on the Rifampin (6) HTN (hypertension): Controlled now (7) Chronic anticoagulation: lovenox started instead of pradaxa CODE STATUS Full Disposition Waiting for placement, but if denies, pt will go home with HH Admission and Anticipated Discharge Date Admission Date: February 18, 2021 Subjective Pt was seen and examined for post op back follow up Lying in bed in no distress Pt said that he feels better, now little sore after working with PT Insurance denied inpatient rehab Peer to peer review done and the insurance physician did not approve rehab, but ok with SNF Pt does not want to go to SNF. Plan to DC home with HH. Denies any chest pain, palpitation, dizziness and SOB Review of Systems Review of Systems: All systems reviewed & are unremarkable except as noted in HPI & below Constitutional: no fever and no chills Respiratory: no cough and no dyspnea Cardiovascular: no chest pain and no palpitations Gastrointestinal: no abdominal pain, no nausea and no vomiting Physical Exam Physical Exam: General- No acute distress Head- atraumatic Eyes- PERRL, EOMI, ENT- oropharynx clear Neck- supple, no JVD Lungs- clear to auscultation, no wheezing, rhonchi, crackles Heart- regular rhythm; no murmur Abdomen- normal bowel sounds, soft, nontender Extremities- no calf tenderness, moves extremities Back- clean surg. dressings applied Neuro- alert, oriented x 3; PERRL, EOMI; no facial palsy; no dysarthria, moves extremities Skin- warm & dry Results & Data Results & Data ([facility]) Vital Signs (Past 12 Hours) Vital Signs Temp Pulse Pulse Resp BP BP Pulse Ox 02/27/21 07:50 71 91/61 L 02/27/21 07:27 36.5 C 54 L 20 103/65 93 02/26/21 23:37 36.6 C 50 L 14 97/62 L 93 Laboratory Results 02/27/21 02/27/21 02/27/21 Range/Units 07:26 05:16 05:16 WBC 10.45 (4.8-10.8) K/uL RBC 3.97 L (4.7-6.1) M/uL Hgb 11.4 L (14.0-18.0) g/dL Hct 35.6 L (42-52) % MCV 89.7 (80-100) fL MCH 28.7 (25-34) pg MCHC 32.0 (32-36) g/dL RDW Std Deviation 45.0 (36.4-46.3) fL RDW Coeff of Durga 13.9 (11.5-14.5) % Plt Count 510 H (130-400) K/uL MPV 8.8 (7.4-10.4) fL Sodium 140 (136-145) mmol/L Potassium 3.8 (3.5-5.1) mmol/L Chloride 105 (98-107) mmol/L Carbon Dioxide 32 (21-32) mmol/L Anion Gap 3.0 (3-11) BUN 25 H (7-18) mg/dl Creatinine 0.66 (0.6-1.4) mg/dl Est Cr Clr Drug Dosing 131.3 ml/min Est GFR ( Amer) 113.5 Est GFR (Non-Af Amer) 98.0 BUN/Creatinine Ratio 38.7 H (10-20) Glucose 107 H (70-99) mg/dl POC Glucose 105 H (70-99) mg/dl Calcium 8.2 L (8.5-10.1) mg/dl 02/26/21 02/26/21 02/26/21 Range/Units 20:22 16:57 11:57 WBC (4.8-10.8) K/uL RBC (4.7-6.1) M/uL Hgb (14.0-18.0) g/dL Hct (42-52) % MCV (80-100) fL MCH (25-34) pg MCHC (32-36) g/dL RDW Std Deviation (36.4-46.3) fL RDW Coeff of Durga (11.5-14.5) % Plt Count (130-400) K/uL MPV (7.4-10.4) fL Sodium (136-145) mmol/L Potassium (3.5-5.1) mmol/L Chloride (98-107) mmol/L Carbon Dioxide (21-32) mmol/L Anion Gap (3-11) BUN (7-18) mg/dl Creatinine (0.6-1.4) mg/dl Est Cr Clr Drug Dosing ml/min Est GFR ( Amer) Est GFR (Non-Af Amer) BUN/Creatinine Ratio (10-20) Glucose (70-99) mg/dl POC Glucose 130 H 123 H 100 H (70-99) mg/dl Calcium (8.5-10.1) mg/dl Medications Administered Current Inpatient Medications Acetaminophen (Acetaminophen 500 Mg Tab) 1,000 mg PO Q8H PRN PRN Reason: MILD Pain Scale 1,2,3 & Pre PT Stop: 03/21/21 16:08 Al Hydrox/Mg Hydrox/Simethicone (Aluminum/Magnesium Susp 30 Ml Udc) 30 ml PO Q6H PRN PRN Reason: Dyspepsia Stop: 03/21/21 16:08 Last Admin: 02/21/21 12:32 Dose: 30 ml Documented by: Aspirin (Aspirin 81 Mg Ectab) 81 mg PO DAILY EUNICE Stop: 03/20/21 08:59 Last Admin: 02/27/21 07:52 Dose: 81 mg Documented by: Atorvastatin Calcium (Atorvastatin 40 Mg Tab) 40 mg PO QPM EUNICE Stop: 03/19/21 20:59 Last Admin: 02/26/21 20:10 Dose: 40 mg Documented by: Baclofen (Baclofen 10 Mg Tab) 10 mg PO BID PRN PRN Reason: MUSCLE SPASMS Stop: 03/19/21 18:32 Last Admin: 02/18/21 03:43 Dose: 10 mg Documented by: Bisacodyl (Bisacodyl 10 Mg Supp) 10 mg [place] DAILY PRN PRN Reason: Constipation Stop: 03/21/21 16:08 Last Admin: 02/26/21 08:01 Dose: 10 mg Documented by: Calcium Carbonate (Calcium Carbonate 500 Mg Chewable Tab) 500 mg PO BID PRN PRN Reason: Indigestion Stop: 03/23/21 15:45 Last Admin: 02/22/21 15:16 Dose: 500 mg Documented by: Cyanocobalamin (Cyanocobalamin 500 Mcg Tablet (Vitamin B-12)) 1,000 mcg PO Q2D@0900 E[place] Stop: 03/20/21 08:59 Last Admin: 02/26/21 07:35 Dose: 1,000 mcg Documented by: Diphenhydramine HCl (Diphenhydramine Capsule 25 Mg Cap) 25 mg PO Q6H PRN PRN Reason: Allergic Rhinitis/Insomnia Stop: 03/21/21 16:08 Last Admin: 02/21/21 01:30 Dose: 25 mg Documented by: Enoxaparin Sodium (Enoxaparin 100 Mg/1ml Syr) 100 mg SQ Q12 E[place] Stop: 03/29/21 08:59 Last Admin: 02/27/21 08:03 Dose: 100 mg Documented by: Famotidine (Famotidine 20 Mg Tab) 20 mg PO Q12H PRN PRN Reason: Dyspepsia Stop: 03/21/21 16:08 Last Admin: 02/21/21 10:24 Dose: 20 mg Documented by: Heparin Sodium (Beef Lung) (Heparin 10 Unit/Ml 5 Ml Flush) 5 ml FLUSH PRN PRN PRN Reason: Flush Stop: 03/27/21 14:46 Last Admin: 02/26/21 18:28 Dose: 5 ml Documented by: Hydromorphone HCl (Hydromorphone Inj 0.5 Mg/0.5 Ml Syr) 0.5 mg IV Q3H PRN PRN Reason: MOD pain (scale 4-6) & Pre PT Stop: 03/05/21 16:08 Last Admin: 02/26/21 14:21 Dose: 0.5 mg Documented by: Hydromorphone HCl (Hydromorphone Inj 1 Mg/Ml Syringe) 1 mg IV Q3H PRN PRN Reason: severe pain (scale 7-10) Stop: 03/05/21 16:08 Last Admin: 02/26/21 06:08 Dose: 1 mg Documented by: Hydroxyzine HCl (Hydroxyzine Hcl 25 Mg Tab) 25 mg PO Q8H PRN PRN Reason: Anxiety Stop: 03/21/21 16:08 Lorazepam (Ativan) 0.5 mg in 1 mls @ 0.5 mls/min IV Q8H PRN PRN Reason: Sedation/Anxiety Stop: 03/21/21 16:08 Promethazine HCl 12.5 mg/ (Sodium Chloride) 50.5 mls @ 204 mls/hr IV Q6H PRN PRN Reason: Nausea &/or Vomiting Stop: 03/21/21 16:08 Cefazolin Sodium (Ancef 2000mg) 2,000 mg in 15 mls @ 3.75 mls/min IV Q8H [facility] Stop: 04/03/21 10:14 Last Admin: 02/27/21 02:39 Dose: 3.75 mls/min Documented by: Influenza Virus Vaccine Quadrival (Do Not Administer Flu Vaccine) 1 ea N/A PRN PRN PRN Reason: Notification Stop: 03/21/21 16:08 Insulin Aspart (Insulin Aspart 100 Units/Ml 3 Ml Pen) 0 units SC ACHS [facility] Stop: 03/19/21 20:59 Last Admin: 02/27/21 07:49 Dose: 1 units Documented by: Lidocaine (Lidocaine 5% 1 Patch) 1 patch TD QAM [facility] Stop: 03/20/21 08:59 Last Admin: 02/27/21 07:51 Dose: 1 patch Documented by: Lorazepam (Lorazepam 0.5 Mg Tab) 0.5 mg PO Q8H PRN PRN Reason: Sedation/Anxiety Stop: 03/21/21 16:08 Magnesium Hydroxide (Magnesium Hydroxide Susp 30 Ml Udc) 30 ml PO DAILY PRN PRN Reason: Constipation Stop: 03/21/21 16:08 Last Admin: 02/25/21 18:13 Dose: 30 ml Documented by: Metoclopramide HCl (Metoclopramide Hcl Inj 5 Mg/Ml 2 Ml Vial) 10 mg IV Q6H PRN PRN Reason: Nausea &/or Vomiting Stop: 03/21/21 16:08 Last Admin: 02/21/21 18:13 Dose: 10 mg Documented by: Miscellaneous (Remove Lidoderm Patch) 1 ea N/A DAILY@2100 [facility] Stop: 03/20/21 20:59 Last Admin: 02/26/21 20:12 Dose: Not Given Documented by: Naloxone HCl (Naloxone Hcl 0.4 Mg/1 Ml Vial/Carp) 0.1 mg IV Q5M PRN; Protocol PRN Reason: Oversedation/Resp Depression Stop: 03/21/21 16:08 Nitroglycerin (Nitroglycerin Sl 0.4 Mg/Tab Tab) 0.4 mg SL Q5M PRN PRN Reason: Chest Pain Stop: 03/19/21 18:32 Ondansetron HCl (Ondansetron Inj 2 Mg/Ml 2 Ml Vial) 4 mg IV Q6H PRN PRN Reason: Nausea &/or Vomiting Stop: 03/21/21 16:08 Last Admin: 02/21/21 13:38 Dose: 4 mg Documented by: Ondansetron HCl (Ondansetron 4 Mg Od Tab) 4 mg PO Q6H PRN PRN Reason: Nausea Stop: 03/21/21 16:08 Oxycodone HCl (Oxycodone Hcl Ir 5 Mg Tab (Immediate Release)) 5 - 10 mg PO Q4H PRN PRN Reason: Moderate-Severe Pain & Pre PT Stop: 03/05/21 16:08 Last Admin: 02/27/21 06:11 Dose: 10 mg Documented by: Pantoprazole Sodium (Pantoprazole 40 Mg Tab) 40 mg PO Q2D@0900 [facility] Stop: 03/21/21 08:59 Last Admin: 02/27/21 07:50 Dose: 40 mg Documented by: Pneumococcal Polyvalent Vaccine (Do Not Administer Pneumococcal Vaccine) 1 ea N/A PRN PRN PRN Reason: Notification Stop: 03/21/21 16:08 Rifampin (Rifampin 300 Mg Capsule) 600 mg PO QAM [facility] Stop: 03/13/21 08:59 Senna/Docusate Sodium (Docusate Sodium/Senna 50/8.6mg Tab) 2 tab PO HS [place]ICE Stop: 03/21/21 20:59 Last Admin: 02/26/21 20:12 Dose: 2 tab Documented by: Sodium Biphosphate/Sodium Phosphate (Sod Phosphate/Sod Biphosphate Enema 132 Ml Btl) 132 ml [place] ONE PRN PRN Reason: Constipation Stop: 03/21/21 16:08 Sotalol HCl (Sotalol Hcl 80 Mg Tab) 80 mg PO BID EUNICE Stop: 03/19/21 20:59 Last Admin: 02/27/21 08:13 Dose: Not Given Documented by: Tramadol HCl (Tramadol Hcl 50 Mg Tablet) 50 - 100 mg PO Q4H PRN PRN Reason: Moderate-Severe Pain & Pre PT Stop: 03/21/21 16:08 Last Admin: 02/27/21 08:02 Dose: 100 mg Documented by: Vitamin D (Cholecalciferol 1,000 Units 25 Mcg Tab) 2,000 units PO DAILY EUNICE Stop: 03/20/21 08:59 Last Admin: 02/27/21 07:50 Dose: 2,000 units Documented by: Zolpidem Tartrate (Zolpidem Tartrate 10 Mg Tab) 10 mg PO HS PRN PRN Reason: Sleep Stop: 03/23/21 10:23 Last Admin: 02/27/21 00:08 Dose: 10 mg Documented by:
[2021-02-27] MEDS: ACETAMINOPHEN 500 MG TAB PO PRN ×2 (09:47→21:51)
[2021-02-27] MEDS: rifAMPin 300 MG CAPSULE PO SCH (11:37)
[2021-02-27] MEDS: DOCUSATE SODIUM/SENNA 50/8.6MG TAB PO SCH (21:17)
[2021-02-27] MEDS: ATORVASTATIN 40 MG TAB PO SCH (21:17)
[2021-02-28] MEDS: ACETAMINOPHEN 500 MG TAB PO PRN (06:06)
[2021-02-28] MEDS: ceFAZolin 2000MG 2,000 MG/15 ML SYR IV SCH (06:06)
[2021-02-28 06:08] LABS: Hematocrit (blood only) 37.8 % (42-52); Hemoglobin 11.9 g/dL (14.0-18.0)
[2021-02-28] MEDS: oxyCODONE HCL IR 5 MG TAB (IMMEDIATE RELEASE) PO PRN ×2 (06:10→11:17)
--- NOTE | 2021-02-28 07:24 | Hospitalist Progress Note ---
Date of Service February 28, 2021 Assessment & Plan (1) Intractable back pain: History of lumbar fusion and decompression in 2013 Increasing back pain at the surgical site for the last 2 to 3 weeks which is worse over the last week MRI was done as outpt Presented to ER with intractable pain localized with minimal radiation Received pain medications and steroid on admission Orthopedic surgery consulted. discussed with Dr. Carrillo Due to the acuity of the symptoms the patient was taken to OR Holding any further Pradaxa d/t surgery Status post lumbar surgery as documented below Back pain is much improved (2) Abscess in epidural space of lumbar spine: MSSA bacteremia Has lumbar epidural abscess L3-L4 and infected facet cyst L3-L4 on the right Status post: Removal of posterior instrumentation L4-5 and L5-S1 Exploration of fusion L4-5 L5-S1 Lumbar decompression with bilateral medial vasectomies and foraminotomies Posterior spinal fusion L2-3 and L3-L4 next posterior instrumentation Placement of infusion collagen sponge next placement of stimulant beads impregnated with vancomycin and gentamicin Management as per Ortho Blood cultures are positive for gram-positive cocci in clusters-await sensitivity Wound culture Gram stain showed gram-positive cocci, did not show any MRSA Has been placed on intravenous vancomycin and Zosyn, further management below Will monitor CBC and CMP (3) Radiculopathy: Present on admission with back pain with radiation to right thigh and buttock area History of lumbar fusion and decompression in 2013 Increasing back pain at the surgical site for the last 2 to 3 weeks which is worse over the last week MRI was done on Thursday last results are pending S/P removal of posterior instrumentation L4-5 L5-S1. #2 exploration of fusion L4-5 L5-S1. #3 lumbar decompression with bilateral medial facetectomies and foraminotomies L2-3 L3-4. #4 posterior spinal fusion L2-3 L3-4. #5 patient posterior instrumentation L3-4 L4-5. #6 placement of infuse collagen sponge, master graft in the posterior gutters. #7 placement of stimulan beads impregnated with vancomycin gentamicin performed by Dr. Carrillo on 02/19/21 Continue pain controlled Pradaxa has been on hold, ok from ortho standpoint to resume Pradaxa since bleeding stable (now stopped as pt is on lovenox) Wound cx grew staph species IV Vanco and Zosyn discontinued ID consulted Continue IV Cefazolin for 6 to 8 weeks as per ID Continue monitor H/H Incentive spirometry Continue PT/OT Ok from ortho standpoint to discharge home Peer to peer done today and insurance declined for inpatient rehab, but ok with SNF Plan to DC home w/ family and HH (4) Bacteremia: Possible sepsis due to MSSA Blood cx positive for staph aureus MRSA PCR negative IV Vanco changed to Cefazolin ID on on board that recommended to continue IV cefazolin for 6 to 8 weeks and adding rifampin 600mg daily once blood cx clears Pt may need long-term course of abx for suppression Rifampin may lower pradaxa level - discussed with pharmacy - pt started on lovenox 100 bid, pradaxa stopped ECHO no evidence of any valvular vegetation Repeat blood cx on 02/21 negative PICC line placed Will need to continue IV Cefazolin Added Rifampin 600mg daily as per ID Will need to follow with ID outpatient - outpt appointment scheduled (5) Atrial fibrillation, currently in sinus rhythm: Rate is controlled with sotalol Continue sotalol and other medication Has been on Pradaxa for paroxysmal atrial fibrillation Pradaxa on hold due to the recent surgery, then resumed We might consider to change the pradaxa to another anticoagulant due to drug interaction with the rifampin. spoke to pharmacy and they are looking for alternative Pharmacy recommended Lovenox therapeutic dose while on the Rifampin. Discussed that with the pt and agreed with the transition while on the Rifampin Pt is now on lovenox, anticoagulation clinic also contacted Recommend checking H&H as outpatient as well (6) HTN (hypertension): Controlled now (7) Chronic anticoagulation: lovenox started instead of pradaxa CODE STATU - Full Disposition - Pt was denied rehab, plan to DC home with HH Admission and Anticipated Discharge Date Admission Date: February 18, 2021 Subjective Pt was seen and examined for post op back follow up Lying in bed in no distress Pt said that he feels better, but little sore Insurance denied inpatient rehab Peer to peer review done and the insurance physician did not approve rehab, but ok with SNF Pt does not want to go to SNF. Plan to DC home with HH. Denies any chest pain, palpitation, dizziness and SOB Review of Systems Review of Systems: All systems reviewed & are unremarkable except as noted in HPI & below Constitutional: no fever and no chills Respiratory: no cough and no dyspnea Cardiovascular: no chest pain and no palpitations Gastrointestinal: no abdominal pain, no nausea and no vomiting Physical Exam Physical Exam: General- No acute distress Head- atraumatic Eyes- PERRL, EOMI, ENT- oropharynx clear Neck- supple, no JVD Lungs- clear to auscultation, no wheezing, rhonchi, crackles Heart- regular rhythm; no murmur Abdomen- normal bowel sounds, soft, nontender Extremities- no calf tenderness, moves extremities Back- clean surg. dressings applied Neuro- alert, oriented x 3; PERRL, EOMI; no facial palsy; no dysarthria, moves extremities Skin- warm & dry Results & Data Results & Data ([facility]) Vital Signs (Past 12 Hours) Vital Signs Temp Pulse Pulse Resp BP Pulse Ox 02/28/21 06:03 36.9 C 66 16 101/64 92 02/27/21 23:31 36.6 C 59 L 89 16 93/57 L 96 02/27/21 21:22 64 100/69 Laboratory Results 02/28/21 02/28/21 02/27/21 Range/Units 06:00 05:33 21:29 Hgb 11.9 L (14.0-18.0) g/dL Hct 37.8 L (42-52) % POC Glucose 94 93 (70-99) mg/dl 02/27/21 02/27/21 02/27/21 Range/Units 17:00 11:55 07:26 Hgb (14.0-18.0) g/dL Hct (42-52) % POC Glucose 99 88 105 H (70-99) mg/dl Medications Administered Current Inpatient Medications Acetaminophen (Acetaminophen 500 Mg Tab) 1,000 mg PO Q8H PRN PRN Reason: MILD Pain Scale 1,2,3 & Pre PT Stop: 03/21/21 16:08 Last Admin: 02/28/21 06:06 Dose: 1,000 mg Documented by: Al Hydrox/Mg Hydrox/Simethicone (Aluminum/Magnesium Susp 30 Ml Udc) 30 ml PO Q6H PRN PRN Reason: Dyspepsia Stop: 03/21/21 16:08 Last Admin: 02/21/21 12:32 Dose: 30 ml Documented by: Aspirin (Aspirin 81 Mg Ectab) 81 mg PO DAILY EUNICE Stop: 03/20/21 08:59 Last Admin: 02/27/21 07:52 Dose: 81 mg Documented by: Atorvastatin Calcium (Atorvastatin 40 Mg Tab) 40 mg PO QPM EUNICE Stop: 03/19/21 20:59 Last Admin: 02/27/21 21:17 Dose: 40 mg Documented by: Baclofen (Baclofen 10 Mg Tab) 10 mg PO BID PRN PRN Reason: MUSCLE SPASMS Stop: 03/19/21 18:32 Last Admin: 02/18/21 03:43 Dose: 10 mg Documented by: Bisacodyl (Bisacodyl 10 Mg Supp) 10 mg TX DAILY PRN PRN Reason: Constipation Stop: 03/21/21 16:08 Last Admin: 02/26/21 08:01 Dose: 10 mg Documented by: Calcium Carbonate (Calcium Carbonate 500 Mg Chewable Tab) 500 mg PO BID PRN PRN Reason: Indigestion Stop: 03/23/21 15:45 Last Admin: 02/22/21 15:16 Dose: 500 mg Documented by: Cyanocobalamin (Cyanocobalamin 500 Mcg Tablet (Vitamin B-12)) 1,000 mcg PO Q2D@0900 EUNICE Stop: 03/20/21 08:59 Last Admin: 02/26/21 07:35 Dose: 1,000 mcg Documented by: Diphenhydramine HCl (Diphenhydramine Capsule 25 Mg Cap) 25 mg PO Q6H PRN PRN Reason: Allergic Rhinitis/Insomnia Stop: 03/21/21 16:08 Last Admin: 02/21/21 01:30 Dose: 25 mg Documented by: Enoxaparin Sodium (Enoxaparin 100 Mg/1ml Syr) 100 mg SQ Q12 EUNICE Stop: 03/29/21 08:59 Last Admin: 02/27/21 21:18 Dose: 100 mg Documented by: Famotidine (Famotidine 20 Mg Tab) 20 mg PO Q12H PRN PRN Reason: Dyspepsia Stop: 03/21/21 16:08 Last Admin: 02/21/21 10:24 Dose: 20 mg Documented by: Heparin Sodium (Beef Lung) (Heparin 10 Unit/Ml 5 Ml Flush) 5 ml FLUSH PRN PRN PRN Reason: Flush Stop: 03/27/21 14:46 Last Admin: 02/28/21 06:06 Dose: 5 ml Documented by: Hydromorphone HCl (Hydromorphone Inj 0.5 Mg/0.5 Ml Syr) 0.5 mg IV Q3H PRN PRN Reason: MOD pain (scale 4-6) & Pre PT Stop: 03/05/21 16:08 Last Admin: 02/26/21 14:21 Dose: 0.5 mg Documented by: Hydromorphone HCl (Hydromorphone Inj 1 Mg/Ml Syringe) 1 mg IV Q3H PRN PRN Reason: severe pain (scale 7-10) Stop: 03/05/21 16:08 Last Admin: 02/26/21 06:08 Dose: 1 mg Documented by: Hydroxyzine HCl (Hydroxyzine Hcl 25 Mg Tab) 25 mg PO Q8H PRN PRN Reason: Anxiety Stop: 03/21/21 16:08 Lorazepam (Ativan) 0.5 mg in 1 mls @ 0.5 mls/min IV Q8H PRN PRN Reason: Sedation/Anxiety Stop: 03/21/21 16:08 Promethazine HCl 12.5 mg/ (Sodium Chloride) 50.5 mls @ 204 mls/hr IV Q6H PRN PRN Reason: Nausea &/or Vomiting Stop: 03/21/21 16:08 Cefazolin Sodium (Ancef 2000mg) 2,000 mg in 15 mls @ 3.75 mls/min IV Q8H [facility] Stop: 04/03/21 10:14 Last Admin: 02/28/21 06:06 Dose: 3.75 mls/min Documented by: Influenza Virus Vaccine Quadrival (Do Not Administer Flu Vaccine) 1 ea N/A PRN PRN PRN Reason: Notification Stop: 03/21/21 16:08 Insulin Aspart (Insulin Aspart 100 Units/Ml 3 Ml Pen) 0 units SC ACHS [facility] Stop: 03/19/21 20:59 Last Admin: 02/27/21 21:38 Dose: Not Given Documented by: Lidocaine (Lidocaine 5% 1 Patch) 1 patch TD QAM [facility] Stop: 03/20/21 08:59 Last Admin: 02/27/21 07:51 Dose: 1 patch Documented by: Lorazepam (Lorazepam 0.5 Mg Tab) 0.5 mg PO Q8H PRN PRN Reason: Sedation/Anxiety Stop: 03/21/21 16:08 Magnesium Hydroxide (Magnesium Hydroxide Susp 30 Ml Udc) 30 ml PO DAILY PRN PRN Reason: Constipation Stop: 03/21/21 16:08 Last Admin: 02/25/21 18:13 Dose: 30 ml Documented by: Metoclopramide HCl (Metoclopramide Hcl Inj 5 Mg/Ml 2 Ml Vial) 10 mg IV Q6H PRN PRN Reason: Nausea &/or Vomiting Stop: 03/21/21 16:08 Last Admin: 02/21/21 18:13 Dose: 10 mg Documented by: Miscellaneous (Remove Lidoderm Patch) 1 ea N/A DAILY@2100 [facility] Stop: 03/20/21 20:59 Last Admin: 02/27/21 21:18 Dose: 1 ea Documented by: Naloxone HCl (Naloxone Hcl 0.4 Mg/1 Ml Vial/Carp) 0.1 mg IV Q5M PRN; Protocol PRN Reason: Oversedation/Resp Depression Stop: 03/21/21 16:08 Nitroglycerin (Nitroglycerin Sl 0.4 Mg/Tab Tab) 0.4 mg SL Q5M PRN PRN Reason: Chest Pain Stop: 03/19/21 18:32 Ondansetron HCl (Ondansetron Inj 2 Mg/Ml 2 Ml Vial) 4 mg IV Q6H PRN PRN Reason: Nausea &/or Vomiting Stop: 03/21/21 16:08 Last Admin: 02/21/21 13:38 Dose: 4 mg Documented by: Ondansetron HCl (Ondansetron 4 Mg Od Tab) 4 mg PO Q6H PRN PRN Reason: Nausea Stop: 03/21/21 16:08 Oxycodone HCl (Oxycodone Hcl Ir 5 Mg Tab (Immediate Release)) 5 - 10 mg PO Q4H PRN PRN Reason: Moderate-Severe Pain & Pre PT Stop: 03/05/21 16:08 Last Admin: 02/28/21 06:10 Dose: 5 mg Documented by: Pantoprazole Sodium (Pantoprazole 40 Mg Tab) 40 mg PO Q2D@0900 [facility] Stop: 03/21/21 08:59 Last Admin: 02/27/21 07:50 Dose: 40 mg Documented by: Pneumococcal Polyvalent Vaccine (Do Not Administer Pneumococcal Vaccine) 1 ea N/A PRN PRN PRN Reason: Notification Stop: 03/21/21 16:08 Rifampin (Rifampin 300 Mg Capsule) 600 mg PO QAM [facility] Stop: 03/13/21 08:59 Last Admin: 02/27/21 11:37 Dose: 600 mg Documented by: Senna/Docusate Sodium (Docusate Sodium/Senna 50/8.6mg Tab) 2 tab PO HS [facility]ICE Stop: 03/21/21 20:59 Last Admin: 02/27/21 21:17 Dose: 2 tab Documented by: Sodium Biphosphate/Sodium Phosphate (Sod Phosphate/Sod Biphosphate Enema 132 Ml Btl) 132 ml TX ONE PRN PRN Reason: Constipation Stop: 03/21/21 16:08 Sotalol HCl (Sotalol Hcl 80 Mg Tab) 80 mg PO BID [facility] Stop: 03/19/21 20:59 Last Admin: 02/27/21 21:17 Dose: 80 mg Documented by: Tramadol HCl (Tramadol Hcl 50 Mg Tablet) 50 - 100 mg PO Q4H PRN PRN Reason: Moderate-Severe Pain & Pre PT Stop: 03/21/21 16:08 Last Admin: 02/27/21 08:02 Dose: 100 mg Documented by: Vitamin D (Cholecalciferol 1,000 Units 25 Mcg Tab) 2,000 units PO DAILY EUNICE Stop: 03/20/21 08:59 Last Admin: 02/27/21 07:50 Dose: 2,000 units Documented by: Zolpidem Tartrate (Zolpidem Tartrate 10 Mg Tab) 10 mg PO HS PRN PRN Reason: Sleep Stop: 03/23/21 10:23 Last Admin: 02/27/21 23:28 Dose: 10 mg Documented by:
[2021-02-28] MEDS: INSULIN ASPART 100 UNITS/ML 3 ML PEN SC SCH (08:13)
[2021-02-28] MEDS: ASPIRIN 81 MG ECTAB PO SCH (08:14)
[2021-02-28] MEDS: CYANOCOBALAMIN 500 MCG TABLET (VITAMIN B-12) PO SCH (08:14)
[2021-02-28] MEDS: rifAMPin 300 MG CAPSULE PO SCH (08:15)
[2021-02-28] MEDS: SOTALOL HCL 80 MG TAB PO SCH (08:15)
[2021-02-28] MEDS: CHOLECALCIFEROL 1,000 UNITS 25 MCG TAB PO SCH (08:15)
[2021-02-28] MEDS: LIDOCAINE 5% 1 PATCH TD SCH (08:16)
[2021-02-28] MEDS: ENOXAPARIN 100 MG/1ML SYR SQ SCH (08:16)
--- NOTE | 2021-02-28 09:00 | Discharge Summary ---
Date of Service February 28, 2021 Admission HPI Per Admitting Provider He is a 70-year-old male with significant past medical history of hypertension, atrial fibrillation on sotalol and Pradaxa with a history of lumbar spinal fusion and decompression in 2012 apparently has been complaining of localized pain at the operation site for the last 2 to 3 weeks. His pain is has been worse for the last 1 week or so and he underwent an MRI of the lumbar spine on Thursday last since then the pain has been increasing to such extent that he could hardly move around. His pain is localized and it radiates to down the right thigh and right buttock area and does not have any numbness and or tingling involving any of the lower extremities and does not have any problem with urine and her bowel habit. His pain was so bad this morning that he came to the emergency room for further evaluation. The results of MRI are not available as of yet and Dr. Carrillo was contacted who will see the patient tomorrow. Denies any other symptoms specially no chest pain or palpitation, no abdominal pain nausea or vomiting, and no problem with urine and bowel habit and denies any significant weakness involving any of the extremities. Admission Exam Per Admitting Provider Physical Exam: Lying in bed with moderate discomfort and lying on the left side to relief back pain. Constitutional: well developed, well nourished and + ill appearing Eyes: PERRL, conjunctivae normal, anicteric sclerae ENMT: external ear and nose normal, oropharynx normal Neck: trachea midline, no thyromegaly Respiratory: no respiratory distress Auscultation: lungs clear to auscultation bilaterally Cardiovascular: Rate/Rhythm: regular rate and regular rhythm Heart Sounds: no murmur Extremities: no edema Gastrointestinal (Abdomen): Inspection/Auscultation: normal bowel sounds; abdomen not distended Percussion/Palpation: abdomen soft; abdomen nontender Musculoskeletal: Localized tenderness at the lower back. Straight leg raising was minimally painful but pain was worse when he was trying to put the legs down after elevation Neurologic: Alert, awake and oriented x3. No focal sensory and motor deficit appreciated Psychiatric: A+Ox3, euthymic affect Principal Diagnosis Back pain due to epidural abscess MSSA bacteremia Discharge Exam General- No acute distress Head- atraumatic Eyes- PERRL, EOMI, ENT- oropharynx clear Neck- supple, no JVD Lungs- clear to auscultation, no wheezing, rhonchi, crackles Heart- regular rhythm; no murmur Abdomen- normal bowel sounds, soft, nontender Extremities- no calf tenderness, moves extremities Back- clean surg. dressings applied Neuro- alert, oriented x 3; PERRL, EOMI; no facial palsy; no dysarthria, moves extremities Skin- warm & dry Discharge Data Allergies Allergy/AdvReac Type Severity Reaction Status Date / Time Sulfa (Sulfonamide Allergy Unknown PT NOT Verified 02/17/21 15:09 Antibiotics) SURE IF ALLERGIC TOO, ? HIVES Consultations 02/17/21 17:06 ED Decision to Admit Stat 02/17/21 17:53 Consult Orthopedic Surgery Routine 02/17/21 19:04 Consult Anesthesiology Routine 02/20/21 08:14 Consult Infectious Diseases Routine Procedures Performed Operation Date: 02/19/21 10:45 Actual Procedures p L2-L4 Decompression and Fusion, L4-S1 Hardware Removal, Spinal Cord Monitoring(Not Applicable) - Satnam Carrillo DO Ordered Studies 02/19/21 10:30 FL lumbar spine 2-3V Routine Hospital Course (1) Intractable back pain: History of lumbar fusion and decompression in 2012 Increasing back pain at the surgical site for the last 2 to 3 weeks which is worse over the last week MRI was done as outpt Presented to ER with intractable pain localized with minimal radiation Received pain medications and steroid on admission Orthopedic surgery consulted. discussed with Dr. Carrillo Due to the acuity of the symptoms the patient was taken to OR Holding any further Pradaxa d/t surgery Status post lumbar surgery as documented below Back pain is much improved (2) Abscess in epidural space of lumbar spine: MSSA bacteremia Has lumbar epidural abscess L3-L4 and infected facet cyst L3-L4 on the right Status post: Removal of posterior instrumentation L4-5 and L5-S1 Exploration of fusion L4-5 L5-S1 Lumbar decompression with bilateral medial vasectomies and foraminotomies Posterior spinal fusion L2-3 and L3-L4 next posterior instrumentation Placement of infusion collagen sponge next placement of stimulant beads impregnated with vancomycin and gentamicin Management as per Ortho Blood cultures are positive for gram-positive cocci in clusters-await sensitivity Wound culture Gram stain showed gram-positive cocci, did not show any MRSA Has been placed on intravenous vancomycin and Zosyn, further management below Will monitor CBC and CMP (3) Radiculopathy: Present on admission with back pain with radiation to right thigh and buttock area History of lumbar fusion and decompression in 2013 Increasing back pain at the surgical site for the last 2 to 3 weeks which is worse over the last week MRI was done on Thursday last results are pending S/P removal of posterior instrumentation L4-5 L5-S1. #2 exploration of fusion L4-5 L5-S1. #3 lumbar decompression with bilateral medial facetectomies and foraminotomies L2-3 L3-4. #4 posterior spinal fusion L2-3 L3-4. #5 patient posterior instrumentation L3-4 L4-5. #6 placement of infuse collagen sponge, master graft in the posterior gutters. #7 placement of stimulan beads impregnated with vancomycin gentamicin performed by Dr. Carrillo on 02/19/21 Continue pain controlled Pradaxa has been on hold, ok from ortho standpoint to resume Pradaxa since bleeding stable (now stopped as pt is on lovenox) Wound cx grew staph species IV Vanco and Zosyn discontinued ID consulted Continue IV Cefazolin for 6 to 8 weeks as per ID Continue monitor H/H Incentive spirometry Continue PT/OT Ok from ortho standpoint to discharge home Peer to peer done today and insurance declined for inpatient rehab, but ok with SNF Plan to DC home w/ family and HH (4) Bacteremia: Possible sepsis due to MSSA Blood cx positive for staph aureus MRSA PCR negative IV Vanco changed to Cefazolin ID on on board that recommended to continue IV cefazolin for 6 to 8 weeks and adding rifampin 600mg daily once blood cx clears Pt may need long-term course of abx for suppression Rifampin may lower pradaxa level - discussed with pharmacy - pt started on lovenox 100 bid, pradaxa stopped ECHO no evidence of any valvular vegetation Repeat blood cx on 02/21 negative PICC line placed Will need to continue IV Cefazolin Added Rifampin 600mg daily as per ID Will need to follow with ID outpatient - outpt appointment scheduled (5) Atrial fibrillation, currently in sinus rhythm: Rate is controlled with sotalol Continue sotalol and other medication Has been on Pradaxa for paroxysmal atrial fibrillation Pradaxa on hold due to the recent surgery, then resumed We might consider to change the pradaxa to another anticoagulant due to drug interaction with the rifampin. spoke to pharmacy and they are looking for alternative Pharmacy recommended Lovenox therapeutic dose while on the Rifampin. Discussed that with the pt and agreed with the transition while on the Rifampin Pt is now on lovenox, anticoagulation clinic also contacted Recommend checking H&H as outpatient as well (6) HTN (hypertension): Controlled now (7) Chronic anticoagulation: lovenox started instead of pradaxa CODE STATU - Full Disposition - Pt was denied rehab, plan to DC home with Total Time Total Time Spent Total Time Spent (In Minutes): 60 Total Time Includes: Examination of the Patient, Discharge Planning, Medication Reconciliation and Communication With Other Providers Discharge Plan Discharge Items Patient Disposition: Home - Home Health Services Reason For Visit: INTRACTABLE BACK PAIN Discharge Diagnosis: Back pain due to epidural abscess MSSA bacteremia Activity: Per Instructions section Non-emergency contact: Primary Care Provider, Surgeon and Specialist Call non-emergency contact if: you have any medication questions and your symptoms worsen Follow-up/Referrals: Nga Miranda DO [Primary Care Provider] - (Date & Time 03/05/2021 11:10 AM Provider Nga Miranda DO Department Family Medicine [facility] ) Waldo Barrientos MD [Physician] - 04/23/21 9:00 am (Infectious Disease Appointment at [facility]. If you have any questions or need to change the appointment, please call ) Diet: Carb Consistent or DM2 and Heart Healthy Addtl Attending Provider Instructions: Follow-up with primary care doctor, the appointment was scheduled for you for March 05. Recommend to check your blood work at that time, H&H. You will also need to follow-up with an infectious disease doctor. You were started on a new medication, Lovenox, which is a blood thinner. Do not take Pradaxa anymore. You will be contacted by anticoagulation clinic. You will be on IV antibiotics (cefazolin/ Ancef) for 6-8 weeks, in addition take rifampin daily as prescribed. You will be going home on IV antibiotics for 6-8 weeks. [facility] will be supplying your IV supplies and medication. Someone will be reaching out to do some teaching over the phone. [facility] is set up for their first visit on 02/28 when you return home to assist with your first dose of antibiotic. The scheduled times of your antibiotic are 7:00am, 3:00pm, and 11:00pm. They will also be doing home therapy with you. If you have any questions regarding your surgery/your surgical site, please contact Dr. Carrillo's office - [facility], at . Pending Studies at Discharge: No Stand-Alone Forms: My [facility] [employer] Smoking Cessation Medications and DC Order Prescriptions: New cefazolin 1 gram recon soln 2 g IV Q8H 42 Days Qty: 320 RF: 0 enoxaparin 100 mg/mL Syringe 100 mg subcut Q12 14 Days Qty: 28 RF: 0 rifampin 300 mg Capsule 600 mg PO QAM 30 Days Qty: 60 RF: 0 oxycodone 5 mg Tablet 5 mg PO Q4H PRN (Reason: pain) Qty: 14 RF: 0 sennosides-docusate sodium [Senokot-S] 8.6-50 mg Tablet 2 tab PO HS Qty: 20 RF: 0 lidocaine 5 % Adhesive Patch,Medicated 1 patch transdermal QAM Qty: 15 RF: 0 tramadol 50 mg Tablet 50 mg PO Q4H PRN (Reason: pain) Qty: 10 RF: 0 Continued aspirin [Adult Aspirin Regimen] 81 mg tablet,delayed release (DR/EC) 81 mg PO DAILY RF: 0 nitroglycerin 0.4 mg tablet, sublingual 0.4 mg SL Q5M PRN (Reason: Chest Pain) RF: 0 acetaminophen [Tylenol Extra Strength] 500 mg tablet 1,000 mg PO QID PRN (Reason: Pain) RF: 0 sotalol 80 mg tablet 80 mg PO BID RF: 0 metformin 500 mg Tablet Extended Release 24 Hr 500 mg PO BID RF: 0 cholecalciferol (vitamin D3) [Vitamin D3] 50 mcg (2,000 unit) Tablet 50 mcg PO DAILY RF: 0 tramadol 50 mg tablet 50 - 100 mg PO Q6H PRN (Reason: pain) Qty: 24 RF: 0 atorvastatin 40 mg tablet 40 mg PO QPM RF: 0 cyanocobalamin (vitamin B-12) [Vitamin B-12] 1,000 mcg Tablet 1,000 mcg PO Q OTHER DAY RF: 0 baclofen 10 mg tablet 10 mg PO BID PRN (Reason: MUSCLE SPASMS) RF: 0 lansoprazole [Prevacid] 15 mg Capsule,Delayed Release(Dr/Ec) 15 mg PO Q OTHER DAY RF: 0 Discontinued Pradaxa 150 mg capsule 150 mg PO BID RF: 0 Discharge Orders: Discharge Order (Routine); Ordered 02/28/21 Ordered By: Michael Bass Admission Data Admit Date/Time: 02/18/21 09:43 Attending Provider: Michael Bass Admit Provider: Satnam Carrillo Primary Care Provider: Nga Miranda Other Providers: Alissa Jaime ; Satnam Carrillo ; Jb Manley ; Robert Cotto ; Justin Davenport ; Waldo Barrientos I. ; Tong Monique II ; Maria Alejandra Huang ; Kvng Burleson ; [facility] ; [facility] ; Sher Elliott
== END 2021-02-28 12:24 | disposition home health service (06) | DRG 853 ==
LOC: 3N 14:05 → ED 14:05 → 3N 18:13 → SUATTDRO 02-18 09:43